=== PATIENT | male | born 1990 | race Hispanic/Latino ===

== ENCOUNTER 2017-09-05 10:11 | Emergency (ER) | payer BC ==
[2017-09-05 10:33] VITALS: BMI 22.8
[2017-09-05 11:28] LABS: BASO # 0.03 K/mm3 (0.0-2.0); BASO % 0.3 % (0.0-3.0); EOS # 0.2 (0.0-0.7); EOS % 2.5 % (1.5-5.0); GRAN # 5.68 (1.4-6.5); GRAN % 64.8 % (50.0-68.0); HEMOGLOBIN 14.5 g/dL (14.0-18.0); LYMPH # 2.4 (1.2-3.4); MEAN CELL VOLUME 88.6 fl (80.0-105.0); MEAN CORPUSCULAR HEMOGLOBIN 31.8 pg (25.0-35.0); MEAN CORPUSCULAR HGB CONC 35.9 g/dl (31.0-37.0); MONO # 0.5 (0.1-0.6); MONO % 5.4 % (1.0-6.0); RBC 4.56 10^6/uL (3.5-6.1); RED CELL DISTRIBUTION WIDTH 12.2 % (11.5-14.5); WHITE BLOOD COUNT 8.8 10^3/ul (4.5-11.0)
[2017-09-05 11:29] LABS: PH,URINE 7.5 (4.7-8.0); URINE BILIRUBIN NEGATIVE (NEGATIVE); URINE BLOOD NEGATIVE (NEGATIVE); URINE GLUCOSE (UA) NEGATIVE (NEGATIVE); URINE LEUKOCYTE ESTERASE NEGATIVE Leu/uL (NEGATIVE); URINE PROTEIN NEGATIVE mg/dL (<30 mg/dL); URINE UROBILINOGEN 0.2 E.U./dL (<1 E.U./dL)
[2017-09-05 11:35] LABS: URINE APPEARANCE CLEAR (CLEAR); URINE COLOR YELLOW (YELLOW)
[2017-09-05 11:37] LABS: ALB/GLOB RATIO 1.7 (1.1-1.8); ALBUMIN 4.4 g/dL (3.0-4.8); ALT/SGPT 48 U/L (7-56); AST/SGOT 30 U/L (17-59); BLOOD UREA NITROGEN 14 mg/dL (7-21); CALCIUM 9.1 mg/dL (8.4-10.5); GFR AFRICAN-AMERICAN > 60; GFR NON-AFRICAN AMERICAN > 60
[2017-09-05 11:42] LABS: INR 1.05 (0.93-1.08); PARTIAL THROMBOPLASTIN TIME 30.6 Seconds (25.1-36.5); PROTHROMBIN TIME 12.1 SECONDS (9.4-12.5)
[2017-09-05 12:10] LABS: BARBITURATES, UR NEGATIVE (NEGATIVE); BENZODIAZEPINES, UR NEGATIVE (NEGATIVE); OPIATES, UR NEGATIVE (NEGATIVE); PHENCYCLIDINE, UR NEGATIVE (NEGATIVE)
--- NOTE | 2017-09-05 12:33 | ED PDOC ---
Arrival/HPI - General Chief Complaint: Headache Time Seen by Provider: 09/05/17 11:25 Historian: Patient - History of Present Illness Narrative History of Present Illness (Text): 09/05/17 12:28 Larry Cesar is a 26 year old male who presents to the emergency department complaining of pain behind right eye today. Patient noticed this morning that his eyelids looked "droopy" probably due to the 2mg Ativan he took today. Patient, also, endorses that he has been using methamphetamine everyday, multiple times a day for the past 4 years, last injection was 09:00 this morning. Patient notes that he told triage that he was hallucinating but rescinds symptom because his hallucinations may just have been his dreams. Patient denies any fever, chills, chest pain, shortness of breath, nausea, vomiting, diarrhea, urinary symptoms, back pain, neck pain, headache, dizziness , trauma/injury, suicidal/homicidal ideation or any other complaints. Time/Duration: 4-6 hours Symptom Onset: Gradual Symptom Course: Unchanged Activities at Onset: Light Context: Home Past Medical History - Provider Review Nursing Documentation Reviewed: Yes - Infectious Disease Hx of Infectious Diseases: None - Psychiatric Hx Substance Use: Yes - Surgical History Hx Tonsillectomy: Yes - Anesthesia Hx Anesthesia: Yes Hx Anesthesia Reactions: No Hx Malignant Hyperthermia: No Family/Social History - Physician Review Nursing Documentation Reviewed: Yes Family/Social History: No Known Family HX Smoking Status: Former Smoker Hx Alcohol Use: No Hx Substance Use: Yes Substance used: meth - last used 09/05/2017 Allergies/Home Meds Allergies/Adverse Reactions: Allergies No Known Allergies Allergy (Verified 09/05/17 10:33) Home Medications: Home Meds Medication Instructions Recorded Confirmed LORazepam [Ativan] 1 tab PO DAILY 09/05/17 09/05/17 Review of Systems - Physician Review All systems were reviewed & negative as marked: Yes - Review of Systems Constitutional: absent: Fevers, Night Sweats Eyes: Eye Pain (behind right eye) ENT: absent: Hearing Changes Respiratory: absent: SOB, Cough Cardiovascular: absent: Chest Pain, Palpitations Gastrointestinal: absent: Abdominal Pain, Stool Changes Genitourinary Male: absent: Dysuria, Frequency Musculoskeletal: absent: Arthralgias Skin: absent: Rash, Pruritis Neurological: absent: Headache, Dizziness Endocrine: absent: Diaphoresis Hemo/Lymphatic: absent: Adenopathy Psychiatric: absent: Anxiety, Depression Physical Exam Vital Signs Reviewed: Yes Vital Signs Temp Pulse Resp BP Pulse Ox 09/05/17 14:20 97.8 F 99 H 17 126/70 99 09/05/17 13:50 97.8 F 99 H 17 126/70 99 09/05/17 13:00 99 H 18 122/74 98 09/05/17 10:35 97.9 F 122 H 18 121/83 97 Temperature: Afebrile Blood Pressure: Normal Pulse: Tachycardic Respiratory Rate: Normal Appearance: Positive for: Well-Appearing, Non-Toxic, Comfortable Pain Distress: None Mental Status: Positive for: Alert and Oriented X 3 - Systems Exam Head: Present: Atraumatic, Normocephalic, Other (Puffiness to eyes) Pupils: Present: PERRL Extroacular Muscles: Present: EOMI Conjunctiva: Present: Normal Mouth: Present: Moist Mucous Membranes Neck: Present: Normal Range of Motion Respiratory/Chest: Present: Clear to Auscultation, Good Air Exchange. No: Respiratory Distress, Accessory Muscle Use Cardiovascular: Present: Regular Rate and Rhythm, Normal S1, S2. No: Murmurs Abdomen: No: Tenderness, Distention, Peritoneal Signs Back: Present: Normal Inspection Upper Extremity: Present: Other (Track hernandez bilaterally) Lower Extremity: Present: Other (Track hernandez bilaterally) Neurological: Present: GCS=15, CN II-XII Intact, Speech Normal Skin: Present: Warm, Dry, Normal Color. No: Rashes Psychiatric: Present: Alert, Oriented x 3, Normal Insight, Normal Concentration Medical Decision Making ED Course and Treatment: 09/05/17 12:36 Impression: 26 year old male complaining of pain behind right eye this morning. Plan: -- Head CT w/o contrast -- Reassess and disposition Progress Notes: 09/05/17 12:[address] without contrast: Creator : Ruperto Gonzalez MD FINDINGS: HEMORRHAGE:No intracranial hemorrhage. BRAIN:No mass effect or edema. No atrophy or chronic microvascular ischemic changes. VENTRICLES:Unremarkable. No hydrocephalus. CALVARIUM:Unremarkable. PARANASAL SINUSES:Unremarkable as visualized. No significant inflammatory changes. MASTOID AIR CELLS:Unremarkable as visualized. No inflammatory changes. OTHER FINDINGS:None. IMPRESSION: No acute findings - Lab Interpretations Lab Results: 09/05/17 11:05 09/05/17 11:05 Lab Results 09/05/17 11:30: Alcohol, Quantitative < 10 09/05/17 11:30: Urine Opiates Screen Negative, Urine Methadone Screen Negative, Ur Barbiturates Screen Negative, Ur Phencyclidine Scrn Negative, Ur Amphetamines Screen Positive H, U Benzodiazepines Scrn Negative, U Oth Cocaine Metabols Negative, U Cannabinoids Screen Negative 09/05/17 11:05: Urine Color Yellow, Urine Appearance Clear, Urine pH 7.5, Ur Specific Simms 1.010, Urine Protein Negative, Urine Glucose (UA) Negative, Urine Ketones Negative, Urine Blood Negative, Urine Nitrate Negative, Urine Bilirubin Negative, Urine Urobilinogen 0.2, Ur Leukocyte Esterase Negative 09/05/17 11:05: Sodium 137, Potassium 4.2, Chloride 100, Carbon Dioxide 26, Anion Gap 16, BUN 14, Creatinine 0.6 L, Est GFR ( Amer) > 60, Est GFR ( Non-Af Amer) > 60, Random Glucose 96, Calcium 9.1, Total Bilirubin 1.1, AST 30, ALT 48, Alkaline Phosphatase 60, Total Protein 7.1, Albumin 4.4, Globulin 2.7, Albumin/Globulin Ratio 1.7 09/05/17 11:05: PT 12.1, INR 1.05, APTT 30.6 09/05/17 11:05: WBC 8.8, RBC 4.56, Hgb 14.5, Hct 40.4 L, MCV 88.6, MCH 31.8, MCHC 35.9, RDW 12.2, Plt Count 254, MPV 9.0, Gran % 64.8, Lymph % (Auto) 27.0, [place] % (Auto) 5.4, Eos % (Auto) 2.5, Baso % (Auto) 0.3, Gran # 5.68, Lymph # ( Auto) 2.4, [place] # (Auto) 0.5, Eos # (Auto) 0.2, Baso # (Auto) 0.03 I have reviewed the lab results: Yes - RAD Interpretation Radiology Orders: 09/05/17 11:32 HEAD W/O CONTRAST [CT] Stat - Scribe Statement The provider has reviewed the documentation as recorded by the Eileenibpepe Corral Provider Scribe Attestation: All medical record entries made by the Scribe were at my direction and personally dictated by me. I have reviewed the chart and agree that the record accurately reflects my personal performance of the history, physical exam, medical decision making, and the department course for this patient. I have also personally directed, reviewed, and agree with the discharge instructions and disposition. Disposition/Present on Arrival - Present on Arrival Any Indicators Present on Arrival: No History of DVT/PE: No History of Uncontrolled Diabetes: No Urinary Catheter: No History of Decub. Ulcer: No History Surgical Site Infection Following: None - Disposition Have Diagnosis and Disposition been Completed?: Yes Diagnosis: Methamphetamine abuse, Benzodiazepine abuse, Polypharmacy Disposition: HOME/ ROUTINE Disposition Time: 13:41 Patient Plan: Discharge Condition: GOOD Discharge Instructions (ExitCare): Drug Abuse and Drug Addiction (DC), Drug Abuse Treatment Additional Instructions: Larry - All of your test results are normal and your Head CT does not show anything specifically wrong. Please take better care of your self and cut back a little or stop the crystal meth. Hunter- Dr. Lowell Aparicio Referrals: Mantara Leonor Req, [Primary Care Provider] - Follow up with primary Forms: [facility] (Greenlandic)
--- NOTE | 2017-09-05 12:43 | CT ---
PROCEDURE: CT HEAD WITHOUT CONTRAST. HISTORY: Headache COMPARISON: None available. TECHNIQUE: Axial computed tomography images were obtained through the head/brain without intravenous contrast. Radiation dose: Total exam DLP = 999 mGy-cm. This CT exam was performed using one or more of the following dose reduction techniques: Automated exposure control, adjustment of the mA and/or kV according to patient size, and/or use of iterative reconstruction technique. FINDINGS: HEMORRHAGE: No intracranial hemorrhage. BRAIN: No mass effect or edema. No atrophy or chronic microvascular ischemic changes. VENTRICLES: Unremarkable. No hydrocephalus. CALVARIUM: Unremarkable. PARANASAL SINUSES: Unremarkable as visualized. No significant inflammatory changes. MASTOID AIR CELLS: Unremarkable as visualized. No inflammatory changes. OTHER FINDINGS: None. IMPRESSION: No acute findings
[2017-09-05 13:36] VITALS: PULSE 99
[2017-09-05 14:21] VITALS: BP 126/70; RESP 17; TEMP 97.8; O2SAT 99
== END 2017-09-05 13:50 | disposition home or self-care (01) ==
LOC: ED 10:11
DX: F13.10 Sedative, hypnotic or anxiolytic abuse, uncomplicated (principal); F15.10 Other stimulant abuse, uncomplicated; Z87.891 Personal history of nicotine dependence
CPT/HCPCS: 70450; 80053; 81003; 85025; 85610; 85730; 99285; G0480

== ENCOUNTER 2017-10-14 23:15 | Emergency (ER) | payer BC ==
[2017-10-15 00:03] VITALS: BMI 21.6
[2017-10-15 00:05] VITALS: RESP 18; TEMP 98.5
--- NOTE | 2017-10-15 00:38 | ED PDOC ---
Arrival/HPI - General Chief Complaint: Medical Clearance Time Seen by Provider: 10/15/17 00:12 Historian: Patient - History of Present Illness Narrative History of Present Illness (Text): 10/15/17 00:30 26yo male with pmhx of substance abuse present to ED for evaluation after injecting himself with Meth. States he thinks he injected air while injecting himself with Meth. He however denies swelling to the injection site, SOB, chest pain, nausea, vomiting, dizziness, diaphoresis, any other complaint. Past Medical History - Provider Review Nursing Documentation Reviewed: Yes - Infectious Disease Hx of Infectious Diseases: None - Psychiatric Hx Substance Use: Yes - Surgical History Hx Tonsillectomy: Yes - Anesthesia Hx Anesthesia: Yes Hx Anesthesia Reactions: No Hx Malignant Hyperthermia: No Family/Social History - Physician Review Nursing Documentation Reviewed: Yes Family/Social History: Unknown Family HX Smoking Status: Former Smoker Hx Alcohol Use: No Hx Substance Use: Yes Substance used: meth - last used 09/05/2017 Allergies/Home Meds Allergies/Adverse Reactions: Allergies No Known Allergies Allergy (Verified 10/15/17 00:03) Home Medications: Home Meds Medication Instructions Recorded Confirmed No Known Home Med 10/15/17 10/15/17 Review of Systems - Physician Review All systems were reviewed & negative as marked: Yes - Review of Systems Constitutional: Normal, Other (Evaluation s/p injecting meth) Eyes: Normal ENT: Normal Respiratory: Normal Cardiovascular: Normal Gastrointestinal: Normal Genitourinary Male: Normal Musculoskeletal: Normal Skin: Normal Neurological: Normal Endocrine: Normal Hemo/Lymphatic: Normal Psychiatric: Normal Physical Exam Vital Signs Reviewed: Yes Vital Signs Temp Pulse Resp BP Pulse Ox 10/15/17 00:58 85 18 128/72 100 10/15/17 00:04 98.5 F 88 18 131/78 96 Temperature: Afebrile Blood Pressure: Normal Pulse: Regular Respiratory Rate: Normal Appearance: Positive for: Well-Appearing, Non-Toxic, Comfortable Pain Distress: None Mental Status: Positive for: Alert and Oriented X 3 - Systems Exam Head: Present: Atraumatic, Normocephalic Pupils: Present: PERRL Extroacular Muscles: Present: EOMI Conjunctiva: Present: Normal Mouth: Present: Moist Mucous Membranes Neck: Present: Normal Range of Motion Respiratory/Chest: Present: Clear to Auscultation, Good Air Exchange. No: Respiratory Distress, Accessory Muscle Use Cardiovascular: Present: Regular Rate and Rhythm, Normal S1, S2. No: Murmurs Abdomen: No: Tenderness, Distention, Peritoneal Signs Back: Present: Normal Inspection Upper Extremity: Present: Normal Inspection. No: Cyanosis, Edema Lower Extremity: Present: Normal Inspection. No: Edema Neurological: Present: GCS=15, CN II-XII Intact, Speech Normal Skin: Present: Warm, Dry, Normal Color, Other (Mutiple superficial abrasions noted on b/l hand/arm). No: Rashes Psychiatric: Present: Alert, Oriented x 3, Normal Insight, Normal Concentration Medical Decision Making ED Course and Treatment: 10/15/17 03:12 PT in ED for stated history. He was not in any distress in ED. He denied any any somatic complaint in ED. his lung was CTA b/l and he was talking in full sentence and ambulatory in ED . He was DC home and counselled on drug cessation. Disposition/Present on Arrival - Present on Arrival Any Indicators Present on Arrival: No History of DVT/PE: No History of Uncontrolled Diabetes: No Urinary Catheter: No History of Decub. Ulcer: No History Surgical Site Infection Following: None - Disposition Have Diagnosis and Disposition been Completed?: Yes Diagnosis: Substance abuse Disposition: HOME/ ROUTINE Disposition Time: 00:40 Patient Plan: Discharge Condition: STABLE Discharge Instructions (ExitCare): Drug Abuse and Drug Addiction (DC), Drug Abuse Treatment Additional Instructions: Follow up with your doctor Return to ED for new symptoms Referrals: [facility] [place] [Outside] - Follow up with primary Forms: [employer] (Indonesian)
[2017-10-15 02:35] VITALS: BP 128/72; PULSE 85; O2SAT 100
== END 2017-10-15 00:58 | disposition home or self-care (01) ==
LOC: ED 23:15
DX: F19.10 Other psychoactive substance abuse, uncomplicated (principal)

== ENCOUNTER 2017-12-28 19:46 | Emergency (ER) | payer BC ==
[2017-12-28 19:47] VITALS: BMI 21.6
[2017-12-28 20:08] VITALS: PULSE 98
[2017-12-28 20:54] LABS: BASO # 0.04 K/mm3 (0.0-2.0); BASO % 0.5 % (0.0-3.0); EOS # 0.2 (0.0-0.7); EOS % 2.1 % (1.5-5.0); GRAN # 3.95 (1.4-6.5); GRAN % 54.2 % (50.0-68.0); HEMOGLOBIN 13.6 g/dL (14.0-18.0); LYMPH # 2.4 (1.2-3.4); LYMPH % 32.2 % (22.0-35.0); MEAN CELL VOLUME 88.8 fl (80.0-105.0); MEAN CORPUSCULAR HEMOGLOBIN 31.2 pg (25.0-35.0); MEAN CORPUSCULAR HGB CONC 35.1 g/dl (31.0-37.0); MEAN PLATELET VOLUME 9.4 fl (7.0-11.0); MONO # 0.8 (0.1-0.6); RBC 4.36 10^6/uL (3.5-6.1); RED CELL DISTRIBUTION WIDTH 13.5 % (11.5-14.5); WHITE BLOOD COUNT 7.3 10^3/ul (4.5-11.0)
--- NOTE | 2017-12-28 20:56 | ED PDOC ---
Arrival/HPI - General Chief Complaint: Abnormal Skin Integrity Time Seen by Provider: 12/28/17 20:11 Historian: Patient - History of Present Illness Narrative History of Present Illness (Text): 12/28/17 20:47 Patient is a 27 year old male with PMH of Hepatitis C (treated) and drug abuse presenting to the ED with right arm cellulitis. Patient admits to be injecting methamphetamines daily. He states that the cellulitis developed 2 weeks ago and has been getting worse. Patient was recently treated on clindamycin for another cellulitis on his hand but was not compliant. Patient denies fevers, chills, headaches, chest pain, shortness of breath, or abdominal pain. Time/Duration: < month Symptom Onset: Gradual Symptom Course: Unchanged Quality: Aching Severity Level: 3 Past Medical History - Provider Review Nursing Documentation Reviewed: Yes - Travel History Have you recently traveled outside [place] w/in the past 3 mons?: No - Infectious Disease Hx of Infectious Diseases: None - Psychiatric Hx Anxiety: Yes Hx Depression: Yes Hx Substance Use: Yes (Meth) - Surgical History Hx Tonsillectomy: Yes - Anesthesia Hx Anesthesia: Yes Hx Anesthesia Reactions: No Hx Malignant Hyperthermia: No Family/Social History - Physician Review Nursing Documentation Reviewed: Yes Family/Social History: No Known Family HX Smoking Status: Former Smoker Hx Alcohol Use: No Hx Substance Use: Yes (Meth) Substance used: meth - last used 09/05/2017 Allergies/Home Meds Allergies/Adverse Reactions: Allergies No Known Allergies Allergy (Verified 12/28/17 20:09) Review of Systems - Review of Systems Constitutional: Normal. absent: Fevers, Night Sweats Eyes: Normal ENT: Normal Respiratory: Normal. absent: SOB, Cough, Wheezing Cardiovascular: Normal. absent: Chest Pain Gastrointestinal: Normal. absent: Abdominal Pain, Stool Changes, Constipation, Diarrhea, Nausea, Vomiting Genitourinary Male: Normal Musculoskeletal: Normal. absent: Arthralgias Skin: Cellulitis (Cellulitis on right arm) Psychiatric: Normal. absent: Anxiety, Depression Physical Exam Vital Signs Reviewed: Yes Vital Signs Temp Pulse Resp BP Pulse Ox 12/28/17 20:59 98 F 98 H 19 124/52 L 98 12/28/17 20:05 98.2 F 98 H 18 123/72 100 Temperature: Afebrile Blood Pressure: Normal Pulse: Regular Respiratory Rate: Normal Appearance: Positive for: Well-Appearing Pain Distress: None Mental Status: Positive for: Alert and Oriented X 3 - Systems Exam Head: Present: Atraumatic, Normocephalic Pupils: Present: PERRL Extroacular Muscles: Present: EOMI Conjunctiva: Present: Normal Mouth: Present: Moist Mucous Membranes Respiratory/Chest: Present: Clear to Auscultation, Good Air Exchange. No: Respiratory Distress, Accessory Muscle Use, Wheezes, Rales, Rhonchi Cardiovascular: Present: Regular Rate and Rhythm, Normal S1, S2. No: Murmurs, Rub, Gallop Abdomen: Present: Normal Bowel Sounds. No: Tenderness, Distention, Peritoneal Signs Upper Extremity: Present: Tenderness, Swelling (Erthema and swelling noted on right arm inferior elbow), Erythema, Capillary Refill < 2s, Norm 2-Pt Discrimination, Other (Multiple track hernandez noted on both upper extremities). No: Normal Inspection, Cyanosis Lower Extremity: Present: Normal Inspection. No: Edema Neurological: Present: GCS=15, CN II-XII Intact, Speech Normal Skin: Present: Warm, Dry. No: Rashes Psychiatric: Present: Alert, Oriented x 3, Normal Insight, Normal Concentration Medical Decision Making ED Course and Treatment: 12/28/17 20:59 Impression: Patient is a 27 year old male presenting to the ED with right upper extremity cellulitis Differential Diagnosis included but are not limited to: - Cellulitis - Abscess Plan: -- CBC -- CMP -- Keflex -- Bactrim Progress Notes: 12/28/17 21:00 - WBC: WNL, CMP: hemolyzed sample, patient refused another blood draw. - Patient examined, patient failed outpatient antibiotics treatment. Patient was advised to get IV antibiotics treatment in the hospital but patient refused to be admitted. Patient instructed to return to the ED for worsening or newly concerning symptoms. Patient will be discharged on keflex and bactrim. Patient is stable for discharge. Reassessment Condition: Re-examined, Unchanged - Lab Interpretations Lab Results: 12/28/17 20:45 Lab Results 12/28/17 20:45: WBC 7.3, RBC 4.36, Hgb 13.6 L, Hct 38.7 L, MCV 88.8, MCH 31.2, MCHC 35.1, RDW 13.5, Plt Count 276, MPV 9.4, Gran % 54.2, Lymph % (Auto) 32.2, [place] % (Auto) 11.0 H, Eos % (Auto) 2.1, Baso % (Auto) 0.5, Gran # 3.95, Lymph # (Auto) 2.4, [place] # (Auto) 0.8 H, Eos # (Auto) 0.2, Baso # (Auto) 0.04 Disposition/Present on Arrival - Present on Arrival Any Indicators Present on Arrival: No History of DVT/PE: No History of Uncontrolled Diabetes: No Urinary Catheter: No History of Decub. Ulcer: No History Surgical Site Infection Following: None - Disposition Have Diagnosis and Disposition been Completed?: Yes Diagnosis: Cellulitis Disposition: HOME/ ROUTINE Disposition Time: 21:23 Patient Plan: Discharge Patient Problems: Current Active Problems Problem Status Onset Cellulitis Acute Condition: STABLE Discharge Instructions (ExitCare): Cellulitis (ED) Additional Instructions: STEVEN WOODRUFF, thank you for letting us take care of you today. Your provider was and you were treated for cellulitis. The emergency medical care you received today was directed at your acute symptoms. If you were prescribed any medication, please fill it and take as directed. It may take several days for your symptoms to resolve. Return to the Emergency Department if your symptoms worsen, do not improve, or if you have any other problems. Please contact your doctor or call one of the physicians/clinics you have been referred to that are listed on the Patient Visit Information form that is included in your discharge packet. Bring any paperwork you were given at discharge with you along with any medications you are taking to your follow up visit. Our treatment cannot replace ongoing medical care by a primary care provider outside of the emergency department. Thank you for allowing the [facility] team to be part of your care today. If you had an X-Ray or CT scan: A Radiologist will review the ED reading if any change in treatment is needed we will contact you. If you had a blood, urine, or wound culture: It will take several days for the results, if any change in treatment is needed we will contact you. If you had an STI test: It will take 48 hours for the results. Please call after 1 week if you have not heard back. Prescriptions: Cephalexin [Keflex] 500 mg PO QID #40 capsule Sulfamethoxazole/Trimethoprim [Bactrim DS 800 mg-160 mg] 1 tab PO BID #20 tab Referrals: Jessica Wang MD [Medical Doctor] - Follow up with primary Forms: [employer] (Faroese)
[2017-12-28 21:02] VITALS: BP 124/52; RESP 19; TEMP 98; O2SAT 98
== END 2017-12-28 22:36 | disposition home or self-care (01) ==
LOC: ED 19:46
DX: L03.113 Cellulitis of right upper limb (principal); Z87.891 Personal history of nicotine dependence

== ENCOUNTER 2018-01-21 17:44 | Inpatient (IN) | payer BC ==
[2018-01-21 18:06] VITALS: BMI 21.2
--- NOTE | 2018-01-21 18:06 | ED PDOC ---
Arrival/HPI - General Time Seen by Provider: 01/21/18 18:06 Historian: EMS EM Caveat: Altered Mental Status - History of Present Illness Narrative History of Present Illness (Text): 01/21/18 17:56 Patient is a 27 year old male with a history of substance abuse, who was brought to the Emergency department by EMS for acute agitation secondary to substance abuse. Per EMS, patient admitted to taking "speed" and heroin. He subsequently called EMS because he was experiencing palpitations. EMS found him to be tachycardic at 144bpm. Haldol 10mg IM was administered due to patient showing acute and severe agitation. HPI and ROS is limited due to patient's AMS secondary substance abuse. Past Medical History - Provider Review Nursing Documentation Reviewed: Yes - Infectious Disease Hx of Infectious Diseases: None - Psychiatric Hx Anxiety: Yes Hx Depression: Yes Hx Substance Use: Yes (Meth) - Surgical History Hx Tonsillectomy: Yes - Anesthesia Hx Anesthesia: Yes Hx Anesthesia Reactions: No Hx Malignant Hyperthermia: No Family/Social History - Physician Review Nursing Documentation Reviewed: Yes Family/Social History: No Known Family HX Smoking Status: Former Smoker Hx Alcohol Use: No Hx Substance Use: Yes (Meth) Substance used: meth - last used 09/05/2017 Allergies/Home Meds Allergies/Adverse Reactions: Allergies No Known Allergies Allergy (Verified 01/21/18 18:43) Home Medications: Home Meds Medication Instructions Recorded Confirmed Unobtainable 01/21/18 01/21/18 Review of Systems - Review of Systems Systems not reviewed;Unavailable: Altered Mental Status Physical Exam Vital Signs Reviewed: Yes Temperature: Afebrile Blood Pressure: Normal Pulse: Tachycardic Respiratory Rate: Normal - Systems Exam Head: Present: Atraumatic Pupils: Present: Other (Dilated, equal, and minimally responsive to light) Extroacular Muscles: Present: EOMI Conjunctiva: Present: Normal Mouth: Present: Dry Neck: Present: Normal Range of Motion Respiratory/Chest: Present: Clear to Auscultation, Tachypneic. No: Respiratory Distress, Accessory Muscle Use Cardiovascular: Present: Normal S1, S2, Tachycardic. No: Murmurs Abdomen: No: Tenderness, Distention, Peritoneal Signs Back: Present: Normal Inspection Upper Extremity: Present: Normal Inspection. No: Cyanosis, Edema Lower Extremity: Present: Normal Inspection. No: Edema Neurological: Present: GCS=15, CN II-XII Intact, Speech Normal Skin: Present: Normal Color, Diaphoretic. No: Rashes Psychiatric: Present: Alert Medical Decision Making ED Course and Treatment: 01/21/18 18:06 Impression: Patient is a 27 year old male who was brought by EMS for altered mental status secondary to substance abuse. Differential Diagnosis included but are not limited to: Plan: -- Head CT without Contrast -- EKG -- Labs -- Blood work -- Haldol -- Ativan -- IV fluids -- Urinalysis -- O2 via nasal cannula -- Reassess and disposition Prior Visits: Notes and results from previous visits were reviewed. Progress Notes: 01/21/18 18:12 Discussed with poison control who recommends IV fluids and Benzo's for sedation. Repeat EKG in 4 hours. Rule out coingestion. 01/21/18 20:[address] zapata, patient to be admitted to the icu. it was agreed to start empiric abx in light of leukocytosis. no clear source of infection at this time, cultures ordered and abx to be started. - Critical Care Critical Care Minutes: Other (35 minutes) - Lab Interpretations I have reviewed the lab results: Yes - RAD Interpretation Narrative RAD Interpretations (Text): 01/21/18 19:15 Chest X-ray: Dictator : Luis Acosta MD FINDINGS: LUNGS: No active pulmonary disease. PLEURA: No significant pleural effusion identified, no pneumothorax apparent. CARDIOVASCULAR: Normal. OSSEOUS STRUCTURES: No significant abnormalities. VISUALIZED UPPER ABDOMEN: Normal. OTHER FINDINGS: None. IMPRESSION: No active disease. 01/21/18 21:[address] without Contrast: Dictator: Dr.Michael Adamson IMPRESSION: Sinusitis. No evidence of acute intracranial pathology. Broker Assistant: Radiologist - EKG Interpretation EKG Interpretation (Text): 01/21/18 19:23 1811: sinus tach at 153 bpm, nml qrs, nml axis, no acute sttw abn Interpreted by ED Physician: Yes Type: 12 lead EKG - Scribe Statement The provider has reviewed the documentation as recorded by the Scribe Saroj Shaw Provider Scribe Attestation: All medical record entries made by the Scribe were at my direction and personally dictated by me. I have reviewed the chart and agree that the record accurately reflects my personal performance of the history, physical exam, medical decision making, and the department course for this patient. I have also personally directed, reviewed, and agree with the discharge instructions and disposition. Disposition/Present on Arrival - Present on Arrival Any Indicators Present on Arrival: No History of DVT/PE: No History of Uncontrolled Diabetes: No Urinary Catheter: No History Surgical Site Infection Following: None - Disposition Have Diagnosis and Disposition been Completed?: Yes Diagnosis: Drug overdose Disposition: HOSPITALIZED Disposition Time: 18:30 Patient Problems: Current Active Problems Problem Status Onset Drug overdose Acute Condition: GUARDED
[2018-01-21] MEDS ORDERED: Sodium Chloride 0.9% 1,000 ML IV STA ×4 (18:08→21:02)
[2018-01-21 18:29] LABS: BASO # 0.06 K/mm3 (0.0-2.0); BASO % 0.3 % (0.0-3.0); EOS # 1.4 (0.0-0.7); EOS % 7.2 % (1.5-5.0); GRAN # 5.19 (1.4-6.5); GRAN % 26.7 % (50.0-68.0); HEMOGLOBIN 15.7 g/dL (14.0-18.0); LYMPH # 11.4 (1.2-3.4); LYMPH % 58.3 % (22.0-35.0); MEAN CELL VOLUME 91.3 fl (80.0-105.0); MEAN CORPUSCULAR HGB CONC 33.9 g/dl (31.0-37.0); MONO # 1.5 (0.1-0.6); MONO % 7.5 % (1.0-6.0); RBC 5.07 10^6/uL (3.5-6.1); RED CELL DISTRIBUTION WIDTH 13.4 % (11.5-14.5); WHITE BLOOD COUNT 19.5 10^3/ul (4.5-11.0)
[2018-01-21 18:40] LABS: ALB/GLOB RATIO 1.5 (1.1-1.8); ALBUMIN 4.8 g/dL (3.0-4.8); ALT/SGPT 38 U/L (7-56); AST/SGOT 39 U/L (17-59); BLOOD UREA NITROGEN 14 mg/dL (7-21); CALCIUM 10.2 mg/dL (8.4-10.5); GFR NON-AFRICAN AMERICAN > 60
[2018-01-21 18:59] LABS: PH,URINE 6.5 (4.7-8.0); URINE BILIRUBIN SMALL (NEGATIVE); URINE BLOOD NEGATIVE (NEGATIVE); URINE GLUCOSE (UA) NEGATIVE (NEGATIVE); URINE LEUKOCYTE ESTERASE NEGATIVE Leu/uL (NEGATIVE); URINE PROTEIN 30 mg/dL (<30 mg/dL)
--- NOTE | 2018-01-21 19:03 | RAD ---
Date of service: 01/21/2018 HISTORY: aspiration COMPARISON: No prior. FINDINGS: LUNGS: No active pulmonary disease. PLEURA: No significant pleural effusion identified, no pneumothorax apparent. CARDIOVASCULAR: Normal. OSSEOUS STRUCTURES: No significant abnormalities. VISUALIZED UPPER ABDOMEN: Normal. OTHER FINDINGS: None. IMPRESSION: No active disease.
[2018-01-21 19:09] LABS: URINE APPEARANCE CLEAR (CLEAR); URINE COLOR YELLOW (YELLOW)
[2018-01-21 19:11] LABS: ACETAMINOPHEN < 10.0 ug/ml (10.0-20.0); SALICYLATE 10 mg/dL (2.0-20.0)
[2018-01-21 19:16] LABS: BENZODIAZEPINES, UR NEGATIVE (NEGATIVE)
[2018-01-21 19:22] LABS: URINE AMORPHOUS SEDIMENT MODERATE; URINE BACTERIA FEW (NEG); URINE RBC NEGATIVE /hpf (0-2)
[2018-01-21 19:24] LABS: BARBITURATES, UR NEGATIVE (NEGATIVE); OPIATES, UR NEGATIVE (NEGATIVE); PHENCYCLIDINE, UR NEGATIVE (NEGATIVE)
[2018-01-21] MEDS ORDERED: Piperacillin/Tazobact 3.375 gm 100 ML IVPB STA (20:30)
[2018-01-21] MEDS ORDERED: Vancomycin 500 mg Inj IVPB STA (20:31)
[2018-01-21] MEDS ORDERED: Vancomycin 1gm in NS 250ml 1 GM/250 ML BAG IVPB STA (20:37)
--- NOTE | 2018-01-21 20:59 | CP.PCM.HP ---
<Elio Hickman - Last Filed: 01/21/18 22:21> History of Present Illness - History of Present Illness History of Present Illness: 27 year old male with a past medical history of methamphetamine/polysubstance abuse and cellulitis who was brought in by EMS for palpitations and chest discomfort in the setting of methamphetamine use. In the ED patient was noted to be agitated and given a 20 mg IM of Haldol and 2 mg of Ativan. Poison control was contacted and recommended treatment with benzodiazepines and repeat EKG in 4 hours. ICU was consulted for the patient being persistently hypotensive despite being given 3 fluids of IV fluids. Otherwise, 12 point ROS was limited secondary to patient being sedated. PMH: Polysubstance abuse PSH: tonsillectomy Allergies; NKA Social: Unobtainable; history of methamphetamine use Present on Admission - Present on Admission Any Indicators Present on Admission: No Review of Systems - Review of Systems All systems: reviewed and no additional remarkable complaints except (as per HPI) Past Patient History - Infectious Disease Hx of Infectious Diseases: None - Past Social History Smoking Status: Former Smoker - PSYCHIATRIC Hx Anxiety: Yes Hx Depression: Yes Hx Substance Use: Yes (Meth) - SURGICAL HISTORY Hx Tonsillectomy: Yes - ANESTHESIA Hx Anesthesia: Yes Hx Anesthesia Reactions: No Hx Malignant Hyperthermia: No Meds Allergies/Adverse Reactions: Allergies Allergy/AdvReac Type Severity Reaction Status Date / Time No Known Allergies Allergy Verified 01/21/18 18:43 Physical Exam - Constitutional Appears: Unkempt, Other (sedated) - Head Exam Head Exam: ATRAUMATIC, NORMOCEPHALIC - Neck Exam Neck exam: Positive for: Normal Inspection - Respiratory Exam Respiratory Exam: Clear to Auscultation Bilateral, NORMAL BREATHING PATTERN. absent: Accessory Muscle Use - Cardiovascular Exam Cardiovascular Exam: RRR, +S1, +S2 - GI/Abdominal Exam GI & Abdominal Exam: Normal Bowel Sounds, Soft - Extremities Exam Extremities exam: Positive for: normal inspection. Negative for: calf tenderness - Back Exam Back exam: NORMAL INSPECTION. absent: CVA tenderness (L), CVA tenderness (R) - Neurological Exam Additional comments: grimaces to sternal rub - Skin Skin Exam: Dry, Intact, Normal Color Results - Vital Signs Recent Vital Signs: Last Vital Signs Temp 98.7 F 01/21/18 19:39 Pulse 120 H 01/21/18 19:39 Resp 18 01/21/18 19:39 BP 80/43 L 01/21/18 19:39 Pulse Ox 98 01/21/18 19:39 - Labs Result Diagrams: 01/21/18 18:22 01/21/18 18:22 Labs: Laboratory Results - last 24 hr 01/21/18 01/21/18 01/21/18 18:22 18:22 18:22 WBC 19.5 H D RBC 5.07 Hgb 15.7 D Hct 46.3 MCV 91.3 MCH 31.0 MCHC 33.9 RDW 13.4 Plt Count 288 MPV 10.0 Gran % 26.7 L Lymph % (Auto) 58.3 H [place] % (Auto) 7.5 H Eos % (Auto) 7.2 H Baso % (Auto) 0.3 Gran # 5.19 Lymph # (Auto) 11.4 H [place] # (Auto) 1.5 H Eos # (Auto) 1.4 H Baso # (Auto) 0.06 Sodium 144 Potassium 5.2 H Chloride 103 Carbon Dioxide 18 L Anion Gap 28 H BUN 14 Creatinine 1.0 Est GFR ( Amer) > 60 Est GFR (Non-Af Amer) > 60 Random Glucose 139 H Calcium 10.2 Magnesium 2.3 H Total Bilirubin 1.1 AST 39 ALT 38 Alkaline Phosphatase 95 Total Creatine Kinase 165 Total Protein 8.0 Albumin 4.8 Globulin 3.2 Albumin/Globulin Ratio 1.5 Urine Color Urine Appearance Urine pH Ur Specific [place] Urine Protein Urine Glucose (UA) Urine Ketones Urine Blood Urine Nitrate Urine Bilirubin Urine Urobilinogen Ur Leukocyte Esterase Urine RBC Urine WBC Ur Epithelial Cells Amorphous Sediment Urine Bacteria Salicylates Urine Opiates Screen Urine Methadone Screen Acetaminophen Ur Barbiturates Screen Ur Phencyclidine Scrn Ur Amphetamines Screen U Benzodiazepines Scrn U Oth Cocaine Metabols U Cannabinoids Screen Alcohol, Quantitative < 10 01/21/18 01/21/18 01/21/18 18:39 18:39 18:39 WBC RBC Hgb Hct MCV MCH MCHC RDW Plt Count MPV Gran % Lymph % (Auto) [place] % (Auto) Eos % (Auto) Baso % (Auto) Gran # Lymph # (Auto) [place] # (Auto) Eos # (Auto) Baso # (Auto) Sodium Potassium Chloride Carbon Dioxide Anion Gap BUN Creatinine Est GFR ( Amer) Est GFR (Non-Af Amer) Random Glucose Calcium Magnesium Total Bilirubin AST ALT Alkaline Phosphatase Total Creatine Kinase Total Protein Albumin Globulin Albumin/Globulin Ratio Urine Color Yellow Urine Appearance Clear Urine pH 6.5 Ur Specific [place] 1.025 Urine Protein 30 H Urine Glucose (UA) Negative Urine Ketones Trace H Urine Blood Negative Urine Nitrate Negative Urine Bilirubin Small H Urine Urobilinogen 4.0 H Ur Leukocyte Esterase Negative Urine RBC Negative Urine WBC 1 - 3 Ur Epithelial Cells 1 - 3 Amorphous Sediment Moderate Urine Bacteria Few Salicylates 10 Urine Opiates Screen Negative Urine Methadone Screen Negative Acetaminophen < 10.0 L Ur Barbiturates Screen Negative Ur Phencyclidine Scrn Negative Ur Amphetamines Screen No result U Benzodiazepines Scrn Negative U Oth Cocaine Metabols Negative U Cannabinoids Screen Positive H Alcohol, Quantitative Assessment & Plan - Assessment and Plan (Free Text) Assessment: 27 year old male with a medical history of methamphetamine use who presented with palpitations, chest discomfort, altered mentation (noted in ED and by EMS) in the setting of methamphetamine use (though UDS did not show this) and was given 4 L of NS via bolus and haldol/Ativan. Patient was also noted to be persistently hypotensive and with a leukocytosis and hence admitted to the ICU for closer monitoring Plan: 1) Leukocytosis (possibly reactive) - Empirically started on broad spectrum antibiotics with Vancomycin and Zosyn - Serum Procalcitonin - Urine and blood cultures - VBG with lactate - Infectious disease consulted, Dr. Melissa 2) Hypotension secondary to sepsis versus sedation - 150 ml/hr of NS - 4 L of fluids given - Maintain MAP over 65 3) Urinary retention - Insert Hauser - Strict I/O 4) Palpitations and chest discomfort - Initial EKG showed sinus tachycardia - Troponin I order - Repeat EKG at 23:59 as per Poison Control (4 hours after first EKG) - Cardiology consulted, Dr. Shirley 5) Agitation in the setting of drug abuse - Ativan 2 mg q6h PRN for agitation - Neurochecks - Fall precautions - Seizure Precautions - Head CT performed, interpretation pending - UDS positive for cannabinoids 6) DVT prophylaxis/Diet - SCD - HHD Case reviewed and discussed with attending physician Dr. Finley - Date & Time Date: 01/21/18 Time: 21:47 <Carlzo Finley - Last Filed: 01/22/18 04:01> Results - Vital Signs Recent Vital Signs: Last Vital Signs Temp 97.7 F 01/21/18 21:50 Pulse 95 H 01/21/18 23:36 Resp 18 01/21/18 23:36 BP 93/50 L 01/21/18 23:36 Pulse Ox 98 01/21/18 23:36 - Labs Result Diagrams: 01/21/18 18:22 01/21/18 18:22 Labs: Laboratory Results - last 24 hr 01/21/18 01/21/18 01/21/18 18:22 18:22 18:22 WBC 19.5 H D RBC 5.07 Hgb 15.7 D Hct 46.3 MCV 91.3 MCH 31.0 MCHC 33.9 RDW 13.4 Plt Count 288 MPV 10.0 Gran % 26.7 L Lymph % (Auto) 58.3 H [place] % (Auto) 7.5 H Eos % (Auto) 7.2 H Baso % (Auto) 0.3 Gran # 5.19 Lymph # (Auto) 11.4 H [place] # (Auto) 1.5 H Eos # (Auto) 1.4 H Baso # (Auto) 0.06 pO2 VBG pH VBG pCO2 VBG HCO3 VBG Total CO2 VBG O2 Sat (Calc) VBG Base Excess VBG Potassium Glucose Lactate FiO2 Sodium 144 Potassium 5.2 H Chloride 103 Carbon Dioxide 18 L Anion Gap 28 H BUN 14 Creatinine 1.0 Est GFR ( Amer) > 60 Est GFR (Non-Af Amer) > 60 Random Glucose 139 H Calcium 10.2 Magnesium 2.3 H Total Bilirubin 1.1 AST 39 ALT 38 Alkaline Phosphatase 95 Total Creatine Kinase 165 Troponin I Total Protein 8.0 Albumin 4.8 Globulin 3.2 Albumin/Globulin Ratio 1.5 Venous Blood Potassium Urine Color Urine Appearance Urine pH Ur Specific [place] Urine Protein Urine Glucose (UA) Urine Ketones Urine Blood Urine Nitrate Urine Bilirubin Urine Urobilinogen Ur Leukocyte Esterase Urine RBC Urine WBC Ur Epithelial Cells Amorphous Sediment Urine Bacteria Salicylates Urine Opiates Screen Urine Methadone Screen Acetaminophen Ur Barbiturates Screen Ur Phencyclidine Scrn Ur Amphetamines Screen U Benzodiazepines Scrn U Oth Cocaine Metabols U Cannabinoids Screen Alcohol, Quantitative < 10 01/21/18 01/21/18 01/21/18 18:39 18:39 18:39 WBC RBC Hgb Hct MCV MCH MCHC RDW Plt Count MPV Gran % Lymph % (Auto) [place] % (Auto) Eos % (Auto) Baso % (Auto) Gran # Lymph # (Auto) [place] # (Auto) Eos # (Auto) Baso # (Auto) pO2 VBG pH VBG pCO2 VBG HCO3 VBG Total CO2 VBG O2 Sat (Calc) VBG Base Excess VBG Potassium Glucose Lactate FiO2 Sodium Potassium Chloride Carbon Dioxide Anion Gap BUN Creatinine Est GFR ( Amer) Est GFR (Non-Af Amer) Random Glucose Calcium Magnesium Total Bilirubin AST ALT Alkaline Phosphatase Total Creatine Kinase Troponin I Total Protein Albumin Globulin Albumin/Globulin Ratio Venous Blood Potassium Urine Color Yellow Urine Appearance Clear Urine pH 6.5 Ur Specific [place] 1.025 Urine Protein 30 H Urine Glucose (UA) Negative Urine Ketones Trace H Urine Blood Negative Urine Nitrate Negative Urine Bilirubin Small H Urine Urobilinogen 4.0 H Ur Leukocyte Esterase Negative Urine RBC Negative Urine WBC 1 - 3 Ur Epithelial Cells 1 - 3 Amorphous Sediment Moderate Urine Bacteria Few Salicylates 10 Urine Opiates Screen Negative Urine Methadone Screen Negative Acetaminophen < 10.0 L Ur Barbiturates Screen Negative Ur Phencyclidine Scrn Negative Ur Amphetamines Screen No result U Benzodiazepines Scrn Negative U Oth Cocaine Metabols Negative U Cannabinoids Screen Positive H Alcohol, Quantitative 01/21/18 01/21/18 01/21/18 21:12 21:29 22:53 WBC RBC Hgb Hct MCV MCH MCHC RDW Plt Count MPV Gran % Lymph % (Auto) [place] % (Auto) Eos % (Auto) Baso % (Auto) Gran # Lymph # (Auto) [place] # (Auto) Eos # (Auto) Baso # (Auto) pO2 229 H VBG pH 7.34 VBG pCO2 48.0 VBG HCO3 25.9 VBG Total CO2 27.4 VBG O2 Sat (Calc) 100.0 H VBG Base Excess -0.4 L VBG Potassium 3.8 Glucose 96 Lactate 0.5 L FiO2 21.0 Sodium 137.0 Potassium Chloride 111.0 H Carbon Dioxide Anion Gap BUN Creatinine Est GFR ( Amer) Est GFR (Non-Af Amer) Random Glucose Calcium Magnesium Total Bilirubin AST ALT Alkaline Phosphatase Total Creatine Kinase Troponin I < 0.01 Total Protein Albumin Globulin Albumin/Globulin Ratio Venous Blood Potassium 3.8 Urine Color Urine Appearance Urine pH Ur Specific [place] Urine Protein Urine Glucose (UA) Urine Ketones Urine Blood Urine Nitrate Urine Bilirubin Urine Urobilinogen Ur Leukocyte Esterase Urine RBC Urine WBC Ur Epithelial Cells Amorphous Sediment Urine Bacteria Salicylates 5 Urine Opiates Screen Urine Methadone Screen Acetaminophen < 10.0 L Ur Barbiturates Screen Ur Phencyclidine Scrn Ur Amphetamines Screen U Benzodiazepines Scrn U Oth Cocaine Metabols U Cannabinoids Screen Alcohol, Quantitative Attending/Attestation - Attestation I have personally seen and examined this patient.: Yes I have fully participated in the care of the patient.: Yes I have reviewed all pertinent clinical information: Yes Notes (Text): 01/22/18 03:53 Patient was seen when he was in the ER in bed # 4. When I saw him , he was not responding to verbal/tactile stimuli.BP was 79/38, HR was 114/min and he was receiving 3rd litre of fluid. Medical record was reviewed. Agree with history, physical examination, assessment and plan. This 27 year old white male with history of substance abuse, methamphetamine use, former smoker, anxiety, depression, tonsillectomy was admitted with heroine overdose, speed use, hypotension, agitation, leukocytosis, lymphocytosis, hyperkalemia, metabolic acidosis, anion gap of 28 .
[2018-01-21] MEDS ORDERED: Sodium Chloride 0.9% 1,000 ML IV SCH (21:15)
[2018-01-21 21:34] LABS: VENOUS BLOOD GAS BASE EXCESS -0.4 mmol/L (0.0-2.0); VENOUS BLOOD GAS PO2 229 mm/Hg (30-55); VENOUS BLOOD PH 7.34 (7.32-7.43)
[2018-01-21 21:50] LABS: ACETAMINOPHEN < 10.0 ug/ml (10.0-20.0); SALICYLATE 5 mg/dL (2.0-20.0)
[2018-01-22 06:59] LABS: BASO # 0.02 K/mm3 (0.0-2.0); BASO % 0.3 % (0.0-3.0); EOS # 0.6 (0.0-0.7); EOS % 8.4 % (1.5-5.0); GRAN # 3.44 (1.4-6.5); GRAN % 45.7 % (50.0-68.0); HEMOGLOBIN 13.3 g/dL (14.0-18.0); LYMPH # 2.7 (1.2-3.4); MEAN CELL VOLUME 89.9 fl (80.0-105.0); MEAN CORPUSCULAR HEMOGLOBIN 30.5 pg (25.0-35.0); MEAN CORPUSCULAR HGB CONC 33.9 g/dl (31.0-37.0); MEAN PLATELET VOLUME 9.2 fl (7.0-11.0); MONO # 0.7 (0.1-0.6); MONO % 9.6 % (1.0-6.0); RBC 4.36 10^6/uL (3.5-6.1); RED CELL DISTRIBUTION WIDTH 13.1 % (11.5-14.5); WHITE BLOOD COUNT 7.5 10^3/ul (4.5-11.0)
[2018-01-22 07:16] LABS: ALB/GLOB RATIO 1.1 (1.1-1.8); ALBUMIN 2.9 g/dL (3.0-4.8); ALT/SGPT 43 U/L (7-56); AST/SGOT 52 U/L (17-59); BLOOD UREA NITROGEN 9 mg/dL (7-21); CALCIUM 7.9 mg/dL (8.4-10.5); GFR NON-AFRICAN AMERICAN > 60
--- NOTE | 2018-01-22 07:22 | CP.CCUPN ---
<Yuri Borges - Last Filed: 01/22/18 10:39> CCU Subjective - Physician Review Subjective (Free Text): Yuri Borges DO, PGY-1 ICU Progress Note for Dr. Moore Patient is a 27 year old male with PMH of polysubstance abuse admitted to ICU for hypotension and tachycardia not responsive to IVF following gamma hydroxybutyrate use. He is sedated s/p 4 mg ativan and 10 mg haldol for agitation last night. Lowest MAP in ED was 51. MAP is now > 70. Patient is responsive and opens eyes when spoken to and responds to painful stimuli. CCU Objective - Vital Signs / Intake & Output Vital Signs (Last 4 hours): Vital Signs Temp Pulse Resp BP Pulse Ox 01/22/18 07:00 83 16 106/49 L 99 01/22/18 06:59 88 17 98 01/22/18 06:50 81 15 96 01/22/18 06:40 86 19 100 01/22/18 06:30 83 17 99 01/22/18 06:20 86 15 99 01/22/18 06:10 85 17 100 01/22/18 06:00 84 14 106/58 L 98 01/22/18 05:50 83 13 98 01/22/18 05:40 82 14 97 01/22/18 05:30 85 15 98 01/22/18 05:20 86 15 98 01/22/18 05:10 84 14 98 01/22/18 05:07 99 F 86 14 99/40 L 01/22/18 05:00 86 13 99/40 L 98 01/22/18 04:50 80 17 97 01/22/18 04:40 80 19 98 01/22/18 04:30 83 13 99 01/22/18 04:20 85 17 98 01/22/18 04:10 87 14 97 01/22/18 04:00 98.8 F 83 13 100/46 L 97 01/22/18 03:50 88 13 96 01/22/18 03:40 88 12 96 01/22/18 03:30 81 12 96 01/22/18 03:20 90 98 Intake and Output (Last 8hrs): Intake & Output 01/21/18 01/22/18 01/22/18 22:59 06:59 14:59 Intake Total 900 Output Total 2800 Balance -1900 Weight 140 lb Intake: Oral 0 Other 900 Output: Urine 2800 Urethral (Hauser) 2800 Stool 0 Urine/Stool Mix 0 Other: Voiding Method Indwelling Catheter # Bowel Movements 0 - Physical Exam Head: Positive for: Atraumatic Pupils: Positive for: Other (Dilated, equal, and minimally responsive to light) Conjunctiva: Positive for: Normal Mouth: Positive for: Dry Pharnyx: Positive for: Normal. Negative for: ERYTHEMA, EXUDATE Neck: Positive for: Normal Range of Motion Respiratory/Chest: Positive for: Clear to Auscultation. Negative for: Respiratory Distress, Accessory Muscle Use, Wheezes, Rales, Rhonchi Cardiovascular: Positive for: Regular Rate and Rhythm, Normal S1, S2. Negative for: Murmurs, Rub, Gallop Abdomen: Negative for: Distention, Rebound, Guarding Upper Extremity: Positive for: Other (multiple track hernandez visible on both arms bilaterally). Negative for: Cyanosis, Edema Lower Extremity: Positive for: Normal Inspection. Negative for: Edema Neurological: Positive for: Motor Func Grossly Intact Skin: Positive for: Warm, Dry, Normal Color. Negative for: Laceration, Abscess Psychiatric: Positive for: Other (sedated) - Medications Active Medications: Active Medications Generic Name Dose Route Start Last Admin Trade Name Freq PRN Reason Stop Dose Admin Sodium Chloride 1,000 mls @ 150 mls/hr 01/21/18 21:15 01/21/18 23:02 Sodium Chloride 0.9% IV 150 mls/hr .[id number] MIAH Administration Vancomycin HCl 1 gm in 250 mls @ 167 mls/hr 01/22/18 10:00 Vancomycin 1gm IVPB DAILY MIAH Protocol Lorazepam 2 mg 01/21/18 21:27 01/22/18 01:48 Ativan IVP 2 mg Q6H PRN Administration Agitation Protocol - Patient Studies Lab Studies: Lab Studies 01/22/18 01/22/18 01/21/18 Range/Units 05:50 05:50 22:53 WBC 7.5 D (4.5-11.0) 10^3/ul RBC 4.36 (3.5-6.1) 10^6/uL Hgb 13.3 L D (14.0-18.0) g/dL Hct 39.2 L (42.0-52.0) % MCV 89.9 (80.0-105.0) fl MCH 30.5 (25.0-35.0) pg MCHC 33.9 (31.0-37.0) g/dl RDW 13.1 (11.5-14.5) % Plt Count 175 (120.0-450.0) 10^3/uL MPV 9.2 (7.0-11.0) fl Gran % 45.7 L (50.0-68.0) % Lymph % (Auto) 36.0 H (22.0-35.0) % [place] % (Auto) 9.6 H (1.0-6.0) % Eos % (Auto) 8.4 H (1.5-5.0) % Baso % (Auto) 0.3 (0.0-3.0) % Gran # 3.44 (1.4-6.5) Lymph # (Auto) 2.7 (1.2-3.4) [place] # (Auto) 0.7 H (0.1-0.6) Eos # (Auto) 0.6 (0.0-0.7) Baso # (Auto) 0.02 (0.0-2.0) K/mm3 pO2 (30-55) mm/Hg VBG pH (7.32-7.43) VBG pCO2 (40-60) VBG HCO3 (21-28) mmol/l VBG Total CO2 (22-28) mmol.L VBG O2 Sat (Calc) (40-65) % VBG Base Excess (0.0-2.0) mmol/L VBG Potassium (3.6-5.2) mmol/L Glucose (75-110) mg/dl Lactate (0.7-2.1) mmol/L FiO2 % Sodium 136 (132-148) mmol/L Potassium 3.6 (3.6-5.0) mmol/L Chloride 107 (98-107) mmol/L Carbon Dioxide 24 (21-33) mmol/L Anion Gap 9 L (10-20) BUN 9 (7-21) mg/dL Creatinine 0.6 L (0.8-1.5) mg/dl Est GFR ( Amer) > 60 Est GFR (Non-Af Amer) > 60 Random Glucose 86 (70-110) mg/dL Calcium 7.9 L (8.4-10.5) mg/dL Magnesium 1.9 (1.7-2.2) mg/dL Total Bilirubin 1.3 (0.2-1.3) mg/dL AST 52 (17-59) U/L ALT 43 (7-56) U/L Alkaline Phosphatase 64 (38-126) U/L Total Creatine Kinase (35-230) U/L Troponin I < 0.01 ng/mL Total Protein 5.6 L (5.8-8.3) g/dL Albumin 2.9 L (3.0-4.8) g/dL Globulin 2.7 gm/dL Albumin/Globulin Ratio 1.1 (1.1-1.8) Venous Blood Potassium (3.6-5.2) mmol/L Urine Color (YELLOW) Urine Appearance (CLEAR) Urine pH (4.7-8.0) Ur Specific [place] (1.005-1.035) Urine Protein (<30 mg/dL) mg/dL Urine Glucose (UA) (NEGATIVE) mg/dL Urine Ketones (NEGATIVE) mg/dL Urine Blood (NEGATIVE) Urine Nitrate (NEGATIVE) Urine Bilirubin (NEGATIVE) Urine Urobilinogen (<1 E.U./dL) E.U./dL Ur Leukocyte Esterase (NEGATIVE) Clark/uL Urine RBC (0-2) /hpf Urine WBC (0-6) /hpf Ur Epithelial Cells (0-5) /hpf Amorphous Sediment Urine Bacteria (NEG) Salicylates (2.0-20.0) mg/dL Urine Opiates Screen (NEGATIVE) Urine Methadone Screen (NEGATIVE) Acetaminophen (10.0-20.0) ug/ml Ur Barbiturates Screen (NEGATIVE) Ur Phencyclidine Scrn (NEGATIVE) Ur Amphetamines Screen (NEGATIVE) U Benzodiazepines Scrn (NEGATIVE) U Oth Cocaine Metabols (NEGATIVE) U Cannabinoids Screen (NEGATIVE) Alcohol, Quantitative (0-10) mg/dL 01/21/18 01/21/18 01/21/18 Range/Units 21:29 21:12 18:39 WBC (4.5-11.0) 10^3/ul RBC (3.5-6.1) 10^6/uL Hgb (14.0-18.0) g/dL Hct (42.0-52.0) % MCV (80.0-105.0) fl MCH (25.0-35.0) pg MCHC (31.0-37.0) g/dl RDW (11.5-14.5) % Plt Count (120.0-450.0) 10^3/uL MPV (7.0-11.0) fl Gran % (50.0-68.0) % Lymph % (Auto) (22.0-35.0) % [place] % (Auto) (1.0-6.0) % Eos % (Auto) (1.5-5.0) % Baso % (Auto) (0.0-3.0) % Gran # (1.4-6.5) Lymph # (Auto) (1.2-3.4) [place] # (Auto) (0.1-0.6) Eos # (Auto) (0.0-0.7) Baso # (Auto) (0.0-2.0) K/mm3 pO2 229 H (30-55) mm/Hg VBG pH 7.34 (7.32-7.43) VBG pCO2 48.0 (40-60) VBG HCO3 25.9 (21-28) mmol/l VBG Total CO2 27.4 (22-28) mmol.L VBG O2 Sat (Calc) 100.0 H (40-65) % VBG Base Excess -0.4 L (0.0-2.0) mmol/L VBG Potassium 3.8 (3.6-5.2) mmol/L Glucose 96 (75-110) mg/dl Lactate 0.5 L (0.7-2.1) mmol/L FiO2 21.0 % Sodium 137.0 (132-148) mmol/L Potassium (3.6-5.0) mmol/L Chloride 111.0 H (98-107) mmol/L Carbon Dioxide (21-33) mmol/L Anion Gap (10-20) BUN (7-21) mg/dL Creatinine (0.8-1.5) mg/dl Est GFR ( Amer) Est GFR (Non-Af Amer) Random Glucose (70-110) mg/dL Calcium (8.4-10.5) mg/dL Magnesium (1.7-2.2) mg/dL Total Bilirubin (0.2-1.3) mg/dL AST (17-59) U/L ALT (7-56) U/L Alkaline Phosphatase (38-126) U/L Total Creatine Kinase (35-230) U/L Troponin I ng/mL Total Protein (5.8-8.3) g/dL Albumin (3.0-4.8) g/dL Globulin gm/dL Albumin/Globulin Ratio (1.1-1.8) Venous Blood Potassium 3.8 (3.6-5.2) mmol/L Urine Color (YELLOW) Urine Appearance (CLEAR) Urine pH (4.7-8.0) Ur Specific [place]ley (1.005-1.035) Urine Protein (<30 mg/dL) mg/dL Urine Glucose (UA) (NEGATIVE) mg/dL Urine Ketones (NEGATIVE) mg/dL Urine Blood (NEGATIVE) Urine Nitrate (NEGATIVE) Urine Bilirubin (NEGATIVE) Urine Urobilinogen (<1 E.U./dL) E.U./dL Ur Leukocyte Esterase (NEGATIVE) Clark/uL Urine RBC (0-2) /hpf Urine WBC (0-6) /hpf Ur Epithelial Cells (0-5) /hpf Amorphous Sediment Urine Bacteria (NEG) Salicylates 5 10 (2.0-20.0) mg/dL Urine Opiates Screen (NEGATIVE) Urine Methadone Screen (NEGATIVE) Acetaminophen < 10.0 L < 10.0 L (10.0-20.0) ug/ml Ur Barbiturates Screen (NEGATIVE) Ur Phencyclidine Scrn (NEGATIVE) Ur Amphetamines Screen (NEGATIVE) U Benzodiazepines Scrn (NEGATIVE) U Oth Cocaine Metabols (NEGATIVE) U Cannabinoids Screen (NEGATIVE) Alcohol, Quantitative (0-10) mg/dL 01/21/18 01/21/18 01/21/18 Range/Units 18:39 18:39 18:22 WBC (4.5-11.0) 10^3/ul RBC (3.5-6.1) 10^6/uL Hgb (14.0-18.0) g/dL Hct (42.0-52.0) % MCV (80.0-105.0) fl MCH (25.0-35.0) pg MCHC (31.0-37.0) g/dl RDW (11.5-14.5) % Plt Count (120.0-450.0) 10^3/uL MPV (7.0-11.0) fl Gran % (50.0-68.0) % Lymph % (Auto) (22.0-35.0) % [place] % (Auto) (1.0-6.0) % Eos % (Auto) (1.5-5.0) % Baso % (Auto) (0.0-3.0) % Gran # (1.4-6.5) Lymph # (Auto) (1.2-3.4) [place] # (Auto) (0.1-0.6) Eos # (Auto) (0.0-0.7) Baso # (Auto) (0.0-2.0) K/mm3 pO2 (30-55) mm/Hg VBG pH (7.32-7.43) VBG pCO2 (40-60) VBG HCO3 (21-28) mmol/l VBG Total CO2 (22-28) mmol.L VBG O2 Sat (Calc) (40-65) % VBG Base Excess (0.0-2.0) mmol/L VBG Potassium (3.6-5.2) mmol/L Glucose (75-110) mg/dl Lactate (0.7-2.1) mmol/L FiO2 % Sodium (132-148) mmol/L Potassium (3.6-5.0) mmol/L Chloride (98-107) mmol/L Carbon Dioxide (21-33) mmol/L Anion Gap (10-20) BUN (7-21) mg/dL Creatinine (0.8-1.5) mg/dl Est GFR ( Amer) Est GFR (Non-Af Amer) Random Glucose (70-110) mg/dL Calcium (8.4-10.5) mg/dL Magnesium (1.7-2.2) mg/dL Total Bilirubin (0.2-1.3) mg/dL AST (17-59) U/L ALT (7-56) U/L Alkaline Phosphatase (38-126) U/L Total Creatine Kinase (35-230) U/L Troponin I ng/mL Total Protein (5.8-8.3) g/dL Albumin (3.0-4.8) g/dL Globulin gm/dL Albumin/Globulin Ratio (1.1-1.8) Venous Blood Potassium (3.6-5.2) mmol/L Urine Color Yellow (YELLOW) Urine Appearance Clear (CLEAR) Urine pH 6.5 (4.7-8.0) Ur Specific [place]ley 1.025 (1.005-1.035) Urine Protein 30 H (<30 mg/dL) mg/dL Urine Glucose (UA) Negative (NEGATIVE) mg/dL Urine Ketones Trace H (NEGATIVE) mg/dL Urine Blood Negative (NEGATIVE) Urine Nitrate Negative (NEGATIVE) Urine Bilirubin Small H (NEGATIVE) Urine Urobilinogen 4.0 H (<1 E.U./dL) E.U./dL Ur Leukocyte Esterase Negative (NEGATIVE) Clark/uL Urine RBC Negative (0-2) /hpf Urine WBC 1 - 3 (0-6) /hpf Ur Epithelial Cells 1 - 3 (0-5) /hpf Amorphous Sediment Moderate Urine Bacteria Few (NEG) Salicylates (2.0-20.0) mg/dL Urine Opiates Screen Negative (NEGATIVE) Urine Methadone Screen Negative (NEGATIVE) Acetaminophen (10.0-20.0) ug/ml Ur Barbiturates Screen Negative (NEGATIVE) Ur Phencyclidine Scrn Negative (NEGATIVE) Ur Amphetamines Screen No result (NEGATIVE) U Benzodiazepines Scrn Negative (NEGATIVE) U Oth Cocaine Metabols Negative (NEGATIVE) U Cannabinoids Screen Positive H (NEGATIVE) Alcohol, Quantitative < 10 (0-10) mg/dL 01/21/18 01/21/18 Range/Units 18:22 18:22 WBC 19.5 H D (4.5-11.0) 10^3/ul RBC 5.07 (3.5-6.1) 10^6/uL Hgb 15.7 D (14.0-18.0) g/dL Hct 46.3 (42.0-52.0) % MCV 91.3 (80.0-105.0) fl MCH 31.0 (25.0-35.0) pg MCHC 33.9 (31.0-37.0) g/dl RDW 13.4 (11.5-14.5) % Plt Count 288 (120.0-450.0) 10^3/uL MPV 10.0 (7.0-11.0) fl Gran % 26.7 L (50.0-68.0) % Lymph % (Auto) 58.3 H (22.0-35.0) % [place] % (Auto) 7.5 H (1.0-6.0) % Eos % (Auto) 7.2 H (1.5-5.0) % Baso % (Auto) 0.3 (0.0-3.0) % Gran # 5.19 (1.4-6.5) Lymph # (Auto) 11.4 H (1.2-3.4) [place] # (Auto) 1.5 H (0.1-0.6) Eos # (Auto) 1.4 H (0.0-0.7) Baso # (Auto) 0.06 (0.0-2.0) K/mm3 pO2 (30-55) mm/Hg VBG pH (7.32-7.43) VBG pCO2 (40-60) VBG HCO3 (21-28) mmol/l VBG Total CO2 (22-28) mmol.L VBG O2 Sat (Calc) (40-65) % VBG Base Excess (0.0-2.0) mmol/L VBG Potassium (3.6-5.2) mmol/L Glucose (75-110) mg/dl Lactate (0.7-2.1) mmol/L FiO2 % Sodium 144 (132-148) mmol/L Potassium 5.2 H (3.6-5.0) mmol/L Chloride 103 (98-107) mmol/L Carbon Dioxide 18 L (21-33) mmol/L Anion Gap 28 H (10-20) BUN 14 (7-21) mg/dL Creatinine 1.0 (0.8-1.5) mg/dl Est GFR ( Amer) > 60 Est GFR (Non-Af Amer) > 60 Random Glucose 139 H (70-110) mg/dL Calcium 10.2 (8.4-10.5) mg/dL Magnesium 2.3 H (1.7-2.2) mg/dL Total Bilirubin 1.1 (0.2-1.3) mg/dL AST 39 (17-59) U/L ALT 38 (7-56) U/L Alkaline Phosphatase 95 (38-126) U/L Total Creatine Kinase 165 (35-230) U/L Troponin I ng/mL Total Protein 8.0 (5.8-8.3) g/dL Albumin 4.8 (3.0-4.8) g/dL Globulin 3.2 gm/dL Albumin/Globulin Ratio 1.5 (1.1-1.8) Venous Blood Potassium (3.6-5.2) mmol/L Urine Color (YELLOW) Urine Appearance (CLEAR) Urine pH (4.7-8.0) Ur Specific [place] (1.005-1.035) Urine Protein (<30 mg/dL) mg/dL Urine Glucose (UA) (NEGATIVE) mg/dL Urine Ketones (NEGATIVE) mg/dL Urine Blood (NEGATIVE) Urine Nitrate (NEGATIVE) Urine Bilirubin (NEGATIVE) Urine Urobilinogen (<1 E.U./dL) E.U./dL Ur Leukocyte Esterase (NEGATIVE) Clark/uL Urine RBC (0-2) /hpf Urine WBC (0-6) /hpf Ur Epithelial Cells (0-5) /hpf Amorphous Sediment Urine Bacteria (NEG) Salicylates (2.0-20.0) mg/dL Urine Opiates Screen (NEGATIVE) Urine Methadone Screen (NEGATIVE) Acetaminophen (10.0-20.0) ug/ml Ur Barbiturates Screen (NEGATIVE) Ur Phencyclidine Scrn (NEGATIVE) Ur Amphetamines Screen (NEGATIVE) U Benzodiazepines Scrn (NEGATIVE) U Oth Cocaine Metabols (NEGATIVE) U Cannabinoids Screen (NEGATIVE) Alcohol, Quantitative (0-10) mg/dL Laboratory Results - last 24 hr 01/21/18 01/21/18 01/21/18 18:22 18:22 18:22 WBC 19.5 H D RBC 5.07 Hgb 15.7 D Hct 46.3 MCV 91.3 MCH 31.0 MCHC 33.9 RDW 13.4 Plt Count 288 MPV 10.0 Gran % 26.7 L Lymph % (Auto) 58.3 H [place] % (Auto) 7.5 H Eos % (Auto) 7.2 H Baso % (Auto) 0.3 Gran # 5.19 Lymph # (Auto) 11.4 H [place] # (Auto) 1.5 H Eos # (Auto) 1.4 H Baso # (Auto) 0.06 pO2 VBG pH VBG pCO2 VBG HCO3 VBG Total CO2 VBG O2 Sat (Calc) VBG Base Excess VBG Potassium Glucose Lactate FiO2 Sodium 144 Potassium 5.2 H Chloride 103 Carbon Dioxide 18 L Anion Gap 28 H BUN 14 Creatinine 1.0 Est GFR ( Amer) > 60 Est GFR (Non-Af Amer) > 60 Random Glucose 139 H Calcium 10.2 Magnesium 2.3 H Total Bilirubin 1.1 AST 39 ALT 38 Alkaline Phosphatase 95 Total Creatine Kinase 165 Troponin I Total Protein 8.0 Albumin 4.8 Globulin 3.2 Albumin/Globulin Ratio 1.5 Venous Blood Potassium Urine Color Urine Appearance Urine pH Ur Specific [place] Urine Protein Urine Glucose (UA) Urine Ketones Urine Blood Urine Nitrate Urine Bilirubin Urine Urobilinogen Ur Leukocyte Esterase Urine RBC Urine WBC Ur Epithelial Cells Amorphous Sediment Urine Bacteria Salicylates Urine Opiates Screen Urine Methadone Screen Acetaminophen Ur Barbiturates Screen Ur Phencyclidine Scrn Ur Amphetamines Screen U Benzodiazepines Scrn U Oth Cocaine Metabols U Cannabinoids Screen Alcohol, Quantitative < 10 01/21/18 01/21/18 01/21/18 18:39 18:39 18:39 WBC RBC Hgb Hct MCV MCH MCHC RDW Plt Count MPV Gran % Lymph % (Auto) [place] % (Auto) Eos % (Auto) Baso % (Auto) Gran # Lymph # (Auto) [place] # (Auto) Eos # (Auto) Baso # (Auto) pO2 VBG pH VBG pCO2 VBG HCO3 VBG Total CO2 VBG O2 Sat (Calc) VBG Base Excess VBG Potassium Glucose Lactate FiO2 Sodium Potassium Chloride Carbon Dioxide Anion Gap BUN Creatinine Est GFR ( Amer) Est GFR (Non-Af Amer) Random Glucose Calcium Magnesium Total Bilirubin AST ALT Alkaline Phosphatase Total Creatine Kinase Troponin I Total Protein Albumin Globulin Albumin/Globulin Ratio Venous Blood Potassium Urine Color Yellow Urine Appearance Clear Urine pH 6.5 Ur Specific [place] 1.025 Urine Protein 30 H Urine Glucose (UA) Negative Urine Ketones Trace H Urine Blood Negative Urine Nitrate Negative Urine Bilirubin Small H Urine Urobilinogen 4.0 H Ur Leukocyte Esterase Negative Urine RBC Negative Urine WBC 1 - 3 Ur Epithelial Cells 1 - 3 Amorphous Sediment Moderate Urine Bacteria Few Salicylates 10 Urine Opiates Screen Negative Urine Methadone Screen Negative Acetaminophen < 10.0 L Ur Barbiturates Screen Negative Ur Phencyclidine Scrn Negative Ur Amphetamines Screen No result U Benzodiazepines Scrn Negative U Oth Cocaine Metabols Negative U Cannabinoids Screen Positive H Alcohol, Quantitative 01/21/18 01/21/18 01/21/18 21:12 21:29 22:53 WBC RBC Hgb Hct MCV MCH MCHC RDW Plt Count MPV Gran % Lymph % (Auto) [place] % (Auto) Eos % (Auto) Baso % (Auto) Gran # Lymph # (Auto) [place] # (Auto) Eos # (Auto) Baso # (Auto) pO2 229 H VBG pH 7.34 VBG pCO2 48.0 VBG HCO3 25.9 VBG Total CO2 27.4 VBG O2 Sat (Calc) 100.0 H VBG Base Excess -0.4 L VBG Potassium 3.8 Glucose 96 Lactate 0.5 L FiO2 21.0 Sodium 137.0 Potassium Chloride 111.0 H Carbon Dioxide Anion Gap BUN Creatinine Est GFR ( Amer) Est GFR (Non-Af Amer) Random Glucose Calcium Magnesium Total Bilirubin AST ALT Alkaline Phosphatase Total Creatine Kinase Troponin I < 0.01 Total Protein Albumin Globulin Albumin/Globulin Ratio Venous Blood Potassium 3.8 Urine Color Urine Appearance Urine pH Ur Specific [place] Urine Protein Urine Glucose (UA) Urine Ketones Urine Blood Urine Nitrate Urine Bilirubin Urine Urobilinogen Ur Leukocyte Esterase Urine RBC Urine WBC Ur Epithelial Cells Amorphous Sediment Urine Bacteria Salicylates 5 Urine Opiates Screen Urine Methadone Screen Acetaminophen < 10.0 L Ur Barbiturates Screen Ur Phencyclidine Scrn Ur Amphetamines Screen U Benzodiazepines Scrn U Oth Cocaine Metabols U Cannabinoids Screen Alcohol, Quantitative 01/22/18 01/22/18 05:50 05:50 WBC 7.5 D RBC 4.36 Hgb 13.3 L D Hct 39.2 L MCV 89.9 MCH 30.5 MCHC 33.9 RDW 13.1 Plt Count 175 MPV 9.2 Gran % 45.7 L Lymph % (Auto) 36.0 H [place] % (Auto) 9.6 H Eos % (Auto) 8.4 H Baso % (Auto) 0.3 Gran # 3.44 Lymph # (Auto) 2.7 [place] # (Auto) 0.7 H Eos # (Auto) 0.6 Baso # (Auto) 0.02 pO2 VBG pH VBG pCO2 VBG HCO3 VBG Total CO2 VBG O2 Sat (Calc) VBG Base Excess VBG Potassium Glucose Lactate FiO2 Sodium 136 Potassium 3.6 Chloride 107 Carbon Dioxide 24 Anion Gap 9 L BUN 9 Creatinine 0.6 L Est GFR ( Amer) > 60 Est GFR (Non-Af Amer) > 60 Random Glucose 86 Calcium 7.9 L Magnesium 1.9 Total Bilirubin 1.3 AST 52 ALT 43 Alkaline Phosphatase 64 Total Creatine Kinase Troponin I Total Protein 5.6 L Albumin 2.9 L Globulin 2.7 Albumin/Globulin Ratio 1.1 Venous Blood Potassium Urine Color Urine Appearance Urine pH Ur Specific [place] Urine Protein Urine Glucose (UA) Urine Ketones Urine Blood Urine Nitrate Urine Bilirubin Urine Urobilinogen Ur Leukocyte Esterase Urine RBC Urine WBC Ur Epithelial Cells Amorphous Sediment Urine Bacteria Salicylates Urine Opiates Screen Urine Methadone Screen Acetaminophen Ur Barbiturates Screen Ur Phencyclidine Scrn Ur Amphetamines Screen U Benzodiazepines Scrn U Oth Cocaine Metabols U Cannabinoids Screen Alcohol, Quantitative EKG/Cardiology Studies: Cardiology / EKG Studies 01/21/18 18:11 EKG [ELECTROCARDIOGRAM] Stat Comment: Reason For Exam: SUBSTANCE ABUSE 01/21/18 23:50 EKG [ELECTROCARDIOGRAM] Routine Comment: Reason For Exam: tachycardic 01/22/18 07:00 EKG [ELECTROCARDIOGRAM] Routine Comment: Reason For Exam: tachycardic Review of Systems - Review of Systems Systems not reviewed;Unavailable: Intoxicated Critical Care Progress Note - Nutrition Nutrition: Nutrition Category Date Time Status Heart Healthy Diet [DIET] Diets 01/22/18 Breakfast Active Assessment/Plan - Assessment and Plan (Free Text) Assessment: 27 M with history of polysubstance abuse brought in by EMS for acute agitation 2/2 drug abuse admitted to ICU for hypotension and tachycardia not responsive to IVF. Plan: Neuro: -Patient received 4 mg ativan and 10 mg haldol in ED -Patient responds and opens eyes when called and grimaces with painful stimuli -Monitor neuro status -Reorient patient as necessary Cardio: -Lowest MAP in ED was 50 -Currently normotensive, RRR without signs or symptoms of HD compromise -Maintain MAP > 65 -Tachycardia on presentation likely 2/2 stimulant use -Troponin negative -Monitor for signs and symptoms of HD compromise Pulm: -No signs of respiratory distress -CTA bilaterally -Patient's SpO2 is consistently > 95% -Continue to monitor respiratory status s/p sedation -ABG repeated -O2 NC PRN ID: -Vanc and zosyn given in ED for leukocytosis, hypotension, tachycardia -Abx management per ID -WBC now 7.5 -Procal pending -Thurman cultures sent, results pending GI: -Continue regular diet -Protonix for GI prophylaxis /Nephro: -BUN/Cr stable -CK negative for rhabdo -Adequate UOP -Replete electrolytes as needed -Maintain euvolemia Endocrine: -Maintain euglycemia Heme: -H/H stable without signs of HD compromise -Continue to monitor H/H GI/DVT Prophylaxis: protonix, lovenox, SCDs Case and plan reviewed and discussed with my attending Dr. Teresa Borges, DO IM Resident PGY-1 <Mendel Moore - Last Filed: 01/22/18 12:13> CCU Objective - Vital Signs / Intake & Output Intake and Output (Last 8hrs): Intake & Output 01/21/18 01/22/18 01/22/18 22:59 06:59 14:59 Intake Total 900 Output Total 2800 Balance -1900 Weight 140 lb Intake: Oral 0 Other 900 Output: Urine 2800 Urethral (Hauser) 2800 Stool 0 Urine/Stool Mix 0 Other: Voiding Method Indwelling Catheter # Bowel Movements 0 - Medications Active Medications: Active Medications Generic Name Dose Route Start Last Admin Trade Name Guicho PRN Reason Stop Dose Admin Enoxaparin Sodium 40 mg 01/22/18 10:30 01/22/18 11:37 Lovenox SC 40 mg DAILY MIAH Administration Protocol Sodium Chloride 1,000 mls @ 150 mls/hr 01/21/18 21:15 01/21/18 23:02 Sodium Chloride 0.9% IV 150 mls/hr .[id number] MIAH Administration Vancomycin HCl 1 gm in 250 mls @ 167 mls/hr 01/22/18 10:00 01/22/18 11:35 Vancomycin 1gm IVPB 167 mls/hr DAILY MIAH Administration Protocol Piperacillin Sod/Tazobactam Sod 100 mls @ 200 mls/hr 01/22/18 12:00 01/22/18 11:37 Zosyn 3.375 In Ns 100ml IVPB 200 mls/hr Q6 MIAH Administration Protocol Pantoprazole Sodium 40 mg 01/22/18 10:30 01/22/18 11:38 Protonix Inj IVP 40 mg DAILY MIAH Administration - Patient Studies Lab Studies: Lab Studies 01/22/18 01/22/18 01/22/18 Range/Units 10:00 05:50 05:50 WBC 7.5 D (4.5-11.0) 10^3/ul RBC 4.36 (3.5-6.1) 10^6/uL Hgb 13.3 L D (14.0-18.0) g/dL Hct 39.2 L (42.0-52.0) % MCV 89.9 (80.0-105.0) fl MCH 30.5 (25.0-35.0) pg MCHC 33.9 (31.0-37.0) g/dl RDW 13.1 (11.5-14.5) % Plt Count 175 (120.0-450.0) 10^3/uL MPV 9.2 (7.0-11.0) fl Gran % 45.7 L (50.0-68.0) % Lymph % (Auto) 36.0 H (22.0-35.0) % [place] % (Auto) 9.6 H (1.0-6.0) % Eos % (Auto) 8.4 H (1.5-5.0) % Baso % (Auto) 0.3 (0.0-3.0) % Gran # 3.44 (1.4-6.5) Lymph # (Auto) 2.7 (1.2-3.4) [place] # (Auto) 0.7 H (0.1-0.6) Eos # (Auto) 0.6 (0.0-0.7) Baso # (Auto) 0.02 (0.0-2.0) K/mm3 pCO2 39 (35-45) mm/Hg pO2 100.0 (30-55) mm/Hg HCO3 23.6 (21-28) mmol/L ABG pH 7.39 (7.35-7.45) ABG Total CO2 24.8 (22-28) mmol.L ABG O2 Saturation 99.2 H (95-98) % ABG O2 Content 17.6 (15-23) ML/dl ABG Base Excess -1.2 (-2.0-3.0) mmol/L ABG Hemoglobin 12.9 (11.7-17.4) g/dL ABG Carboxyhemoglobin 1.8 H (0.5-1.5) % POC ABG HHb (Measured) 0.8 (0-5) % ABG Methemoglobin 0.8 (0.0-3.0) % ABG O2 Capacity 17.7 (16-24) mL/dl VBG pH (7.32-7.43) VBG pCO2 (40-60) VBG HCO3 (21-28) mmol/l VBG Total CO2 (22-28) mmol.L VBG O2 Sat (Calc) (40-65) % VBG Base Excess (0.0-2.0) mmol/L VBG Potassium (3.6-5.2) mmol/L Hgb O2 Saturation 96.6 (95.0-98.0) % Glucose (75-110) mg/dl Lactate (0.7-2.1) mmol/L FiO2 21.0 % Sodium 136 (132-148) mmol/L Potassium 3.6 (3.6-5.0) mmol/L Chloride 107 (98-107) mmol/L Carbon Dioxide 24 (21-33) mmol/L Anion Gap 9 L (10-20) BUN 9 (7-21) mg/dL Creatinine 0.6 L (0.8-1.5) mg/dl Est GFR ( Amer) > 60 Est GFR (Non-Af Amer) > 60 Random Glucose 86 (70-110) mg/dL Calcium 7.9 L (8.4-10.5) mg/dL Magnesium 1.9 (1.7-2.2) mg/dL Total Bilirubin 1.3 (0.2-1.3) mg/dL AST 52 (17-59) U/L ALT 43 (7-56) U/L Alkaline Phosphatase 64 (38-126) U/L Total Creatine Kinase (35-230) U/L Troponin I ng/mL Total Protein 5.6 L (5.8-8.3) g/dL Albumin 2.9 L (3.0-4.8) g/dL Globulin 2.7 gm/dL Albumin/Globulin Ratio 1.1 (1.1-1.8) Venous Blood Potassium (3.6-5.2) mmol/L Urine Color (YELLOW) Urine Appearance (CLEAR) Urine pH (4.7-8.0) Ur Specific [place] (1.005-1.035) Urine Protein (<30 mg/dL) mg/dL Urine Glucose (UA) (NEGATIVE) mg/dL Urine Ketones (NEGATIVE) mg/dL Urine Blood (NEGATIVE) Urine Nitrate (NEGATIVE) Urine Bilirubin (NEGATIVE) Urine Urobilinogen (<1 E.U./dL) E.U./dL Ur Leukocyte Esterase (NEGATIVE) Clark/uL Urine RBC (0-2) /hpf Urine WBC (0-6) /hpf Ur Epithelial Cells (0-5) /hpf Amorphous Sediment Urine Bacteria (NEG) Salicylates (2.0-20.0) mg/dL Urine Opiates Screen (NEGATIVE) Urine Methadone Screen (NEGATIVE) Acetaminophen (10.0-20.0) ug/ml Ur Barbiturates Screen (NEGATIVE) Ur Phencyclidine Scrn (NEGATIVE) Ur Amphetamines Screen (NEGATIVE) U Benzodiazepines Scrn (NEGATIVE) U Oth Cocaine Metabols (NEGATIVE) U Cannabinoids Screen (NEGATIVE) Alcohol, Quantitative (0-10) mg/dL 01/21/18 01/21/18 01/21/18 Range/Units 22:53 21:29 21:12 WBC (4.5-11.0) 10^3/ul RBC (3.5-6.1) 10^6/uL Hgb (14.0-18.0) g/dL Hct (42.0-52.0) % MCV (80.0-105.0) fl MCH (25.0-35.0) pg MCHC (31.0-37.0) g/dl RDW (11.5-14.5) % Plt Count (120.0-450.0) 10^3/uL MPV (7.0-11.0) fl Gran % (50.0-68.0) % Lymph % (Auto) (22.0-35.0) % [place] % (Auto) (1.0-6.0) % Eos % (Auto) (1.5-5.0) % Baso % (Auto) (0.0-3.0) % Gran # (1.4-6.5) Lymph # (Auto) (1.2-3.4) [place] # (Auto) (0.1-0.6) Eos # (Auto) (0.0-0.7) Baso # (Auto) (0.0-2.0) K/mm3 pCO2 (35-45) mm/Hg pO2 229 H (30-55) mm/Hg HCO3 (21-28) mmol/L ABG pH (7.35-7.45) ABG Total CO2 (22-28) mmol.L ABG O2 Saturation (95-98) % ABG O2 Content (15-23) ML/dl ABG Base Excess (-2.0-3.0) mmol/L ABG Hemoglobin (11.7-17.4) g/dL ABG Carboxyhemoglobin (0.5-1.5) % POC ABG HHb (Measured) (0-5) % ABG Methemoglobin (0.0-3.0) % ABG O2 Capacity (16-24) mL/dl VBG pH 7.34 (7.32-7.43) VBG pCO2 48.0 (40-60) VBG HCO3 25.9 (21-28) mmol/l VBG Total CO2 27.4 (22-28) mmol.L VBG O2 Sat (Calc) 100.0 H (40-65) % VBG Base Excess -0.4 L (0.0-2.0) mmol/L VBG Potassium 3.8 (3.6-5.2) mmol/L Hgb O2 Saturation (95.0-98.0) % Glucose 96 (75-110) mg/dl Lactate 0.5 L (0.7-2.1) mmol/L FiO2 21.0 % Sodium 137.0 (132-148) mmol/L Potassium (3.6-5.0) mmol/L Chloride 111.0 H (98-107) mmol/L Carbon Dioxide (21-33) mmol/L Anion Gap (10-20) BUN (7-21) mg/dL Creatinine (0.8-1.5) mg/dl Est GFR ( Amer) Est GFR (Non-Af Amer) Random Glucose (70-110) mg/dL Calcium (8.4-10.5) mg/dL Magnesium (1.7-2.2) mg/dL Total Bilirubin (0.2-1.3) mg/dL AST (17-59) U/L ALT (7-56) U/L Alkaline Phosphatase (38-126) U/L Total Creatine Kinase (35-230) U/L Troponin I < 0.01 ng/mL Total Protein (5.8-8.3) g/dL Albumin (3.0-4.8) g/dL Globulin gm/dL Albumin/Globulin Ratio (1.1-1.8) Venous Blood Potassium 3.8 (3.6-5.2) mmol/L Urine Color (YELLOW) Urine Appearance (CLEAR) Urine pH (4.7-8.0) Ur Specific [place] (1.005-1.035) Urine Protein (<30 mg/dL) mg/dL Urine Glucose (UA) (NEGATIVE) mg/dL Urine Ketones (NEGATIVE) mg/dL Urine Blood (NEGATIVE) Urine Nitrate (NEGATIVE) Urine Bilirubin (NEGATIVE) Urine Urobilinogen (<1 E.U./dL) E.U./dL Ur Leukocyte Esterase (NEGATIVE) Clark/uL Urine RBC (0-2) /hpf Urine WBC (0-6) /hpf Ur Epithelial Cells (0-5) /hpf Amorphous Sediment Urine Bacteria (NEG) Salicylates 5 (2.0-20.0) mg/dL Urine Opiates Screen (NEGATIVE) Urine Methadone Screen (NEGATIVE) Acetaminophen < 10.0 L (10.0-20.0) ug/ml Ur Barbiturates Screen (NEGATIVE) Ur Phencyclidine Scrn (NEGATIVE) Ur Amphetamines Screen (NEGATIVE) U Benzodiazepines Scrn (NEGATIVE) U Oth Cocaine Metabols (NEGATIVE) U Cannabinoids Screen (NEGATIVE) Alcohol, Quantitative (0-10) mg/dL 01/21/18 01/21/18 01/21/18 Range/Units 18:39 18:39 18:39 WBC (4.5-11.0) 10^3/ul RBC (3.5-6.1) 10^6/uL Hgb (14.0-18.0) g/dL Hct (42.0-52.0) % MCV (80.0-105.0) fl MCH (25.0-35.0) pg MCHC (31.0-37.0) g/dl RDW (11.5-14.5) % Plt Count (120.0-450.0) 10^3/uL MPV (7.0-11.0) fl Gran % (50.0-68.0) % Lymph % (Auto) (22.0-35.0) % [place] % (Auto) (1.0-6.0) % Eos % (Auto) (1.5-5.0) % Baso % (Auto) (0.0-3.0) % Gran # (1.4-6.5) Lymph # (Auto) (1.2-3.4) [place] # (Auto) (0.1-0.6) Eos # (Auto) (0.0-0.7) Baso # (Auto) (0.0-2.0) K/mm3 pCO2 (35-45) mm/Hg pO2 (30-55) mm/Hg HCO3 (21-28) mmol/L ABG pH (7.35-7.45) ABG Total CO2 (22-28) mmol.L ABG O2 Saturation (95-98) % ABG O2 Content (15-23) ML/dl ABG Base Excess (-2.0-3.0) mmol/L ABG Hemoglobin (11.7-17.4) g/dL ABG Carboxyhemoglobin (0.5-1.5) % POC ABG HHb (Measured) (0-5) % ABG Methemoglobin (0.0-3.0) % ABG O2 Capacity (16-24) mL/dl VBG pH (7.32-7.43) VBG pCO2 (40-60) VBG HCO3 (21-28) mmol/l VBG Total CO2 (22-28) mmol.L VBG O2 Sat (Calc) (40-65) % VBG Base Excess (0.0-2.0) mmol/L VBG Potassium (3.6-5.2) mmol/L Hgb O2 Saturation (95.0-98.0) % Glucose (75-110) mg/dl Lactate (0.7-2.1) mmol/L FiO2 % Sodium (132-148) mmol/L Potassium (3.6-5.0) mmol/L Chloride (98-107) mmol/L Carbon Dioxide (21-33) mmol/L Anion Gap (10-20) BUN (7-21) mg/dL Creatinine (0.8-1.5) mg/dl Est GFR ( Amer) Est GFR (Non-Af Amer) Random Glucose (70-110) mg/dL Calcium (8.4-10.5) mg/dL Magnesium (1.7-2.2) mg/dL Total Bilirubin (0.2-1.3) mg/dL AST (17-59) U/L ALT (7-56) U/L Alkaline Phosphatase (38-126) U/L Total Creatine Kinase (35-230) U/L Troponin I ng/mL Total Protein (5.8-8.3) g/dL Albumin (3.0-4.8) g/dL Globulin gm/dL Albumin/Globulin Ratio (1.1-1.8) Venous Blood Potassium (3.6-5.2) mmol/L Urine Color Yellow (YELLOW) Urine Appearance Clear (CLEAR) Urine pH 6.5 (4.7-8.0) Ur Specific [place] 1.025 (1.005-1.035) Urine Protein 30 H (<30 mg/dL) mg/dL Urine Glucose (UA) Negative (NEGATIVE) mg/dL Urine Ketones Trace H (NEGATIVE) mg/dL Urine Blood Negative (NEGATIVE) Urine Nitrate Negative (NEGATIVE) Urine Bilirubin Small H (NEGATIVE) Urine Urobilinogen 4.0 H (<1 E.U./dL) E.U./dL Ur Leukocyte Esterase Negative (NEGATIVE) Clark/uL Urine RBC Negative (0-2) /hpf Urine WBC 1 - 3 (0-6) /hpf Ur Epithelial Cells 1 - 3 (0-5) /hpf Amorphous Sediment Moderate Urine Bacteria Few (NEG) Salicylates 10 (2.0-20.0) mg/dL Urine Opiates Screen Negative (NEGATIVE) Urine Methadone Screen Negative (NEGATIVE) Acetaminophen < 10.0 L (10.0-20.0) ug/ml Ur Barbiturates Screen Negative (NEGATIVE) Ur Phencyclidine Scrn Negative (NEGATIVE) Ur Amphetamines Screen No result (NEGATIVE) U Benzodiazepines Scrn Negative (NEGATIVE) U Oth Cocaine Metabols Negative (NEGATIVE) U Cannabinoids Screen Positive H (NEGATIVE) Alcohol, Quantitative (0-10) mg/dL 01/21/18 01/21/18 01/21/18 Range/Units 18:22 18:22 18:22 WBC 19.5 H D (4.5-11.0) 10^3/ul RBC 5.07 (3.5-6.1) 10^6/uL Hgb 15.7 D (14.0-18.0) g/dL Hct 46.3 (42.0-52.0) % MCV 91.3 (80.0-105.0) fl MCH 31.0 (25.0-35.0) pg MCHC 33.9 (31.0-37.0) g/dl RDW 13.4 (11.5-14.5) % Plt Count 288 (120.0-450.0) 10^3/uL MPV 10.0 (7.0-11.0) fl Gran % 26.7 L (50.0-68.0) % Lymph % (Auto) 58.3 H (22.0-35.0) % [place] % (Auto) 7.5 H (1.0-6.0) % Eos % (Auto) 7.2 H (1.5-5.0) % Baso % (Auto) 0.3 (0.0-3.0) % Gran # 5.19 (1.4-6.5) Lymph # (Auto) 11.4 H (1.2-3.4) [place] # (Auto) 1.5 H (0.1-0.6) Eos # (Auto) 1.4 H (0.0-0.7) Baso # (Auto) 0.06 (0.0-2.0) K/mm3 pCO2 (35-45) mm/Hg pO2 (30-55) mm/Hg HCO3 (21-28) mmol/L ABG pH (7.35-7.45) ABG Total CO2 (22-28) mmol.L ABG O2 Saturation (95-98) % ABG O2 Content (15-23) ML/dl ABG Base Excess (-2.0-3.0) mmol/L ABG Hemoglobin (11.7-17.4) g/dL ABG Carboxyhemoglobin (0.5-1.5) % POC ABG HHb (Measured) (0-5) % ABG Methemoglobin (0.0-3.0) % ABG O2 Capacity (16-24) mL/dl VBG pH (7.32-7.43) VBG pCO2 (40-60) VBG HCO3 (21-28) mmol/l VBG Total CO2 (22-28) mmol.L VBG O2 Sat (Calc) (40-65) % VBG Base Excess (0.0-2.0) mmol/L VBG Potassium (3.6-5.2) mmol/L Hgb O2 Saturation (95.0-98.0) % Glucose (75-110) mg/dl Lactate (0.7-2.1) mmol/L FiO2 % Sodium 144 (132-148) mmol/L Potassium 5.2 H (3.6-5.0) mmol/L Chloride 103 (98-107) mmol/L Carbon Dioxide 18 L (21-33) mmol/L Anion Gap 28 H (10-20) BUN 14 (7-21) mg/dL Creatinine 1.0 (0.8-1.5) mg/dl Est GFR ( Amer) > 60 Est GFR (Non-Af Amer) > 60 Random Glucose 139 H (70-110) mg/dL Calcium 10.2 (8.4-10.5) mg/dL Magnesium 2.3 H (1.7-2.2) mg/dL Total Bilirubin 1.1 (0.2-1.3) mg/dL AST 39 (17-59) U/L ALT 38 (7-56) U/L Alkaline Phosphatase 95 (38-126) U/L Total Creatine Kinase 165 (35-230) U/L Troponin I ng/mL Total Protein 8.0 (5.8-8.3) g/dL Albumin 4.8 (3.0-4.8) g/dL Globulin 3.2 gm/dL Albumin/Globulin Ratio 1.5 (1.1-1.8) Venous Blood Potassium (3.6-5.2) mmol/L Urine Color (YELLOW) Urine Appearance (CLEAR) Urine pH (4.7-8.0) Ur Specific [place] (1.005-1.035) Urine Protein (<30 mg/dL) mg/dL Urine Glucose (UA) (NEGATIVE) mg/dL Urine Ketones (NEGATIVE) mg/dL Urine Blood (NEGATIVE) Urine Nitrate (NEGATIVE) Urine Bilirubin (NEGATIVE) Urine Urobilinogen (<1 E.U./dL) E.U./dL Ur Leukocyte Esterase (NEGATIVE) Clark/uL Urine RBC (0-2) /hpf Urine WBC (0-6) /hpf Ur Epithelial Cells (0-5) /hpf Amorphous Sediment Urine Bacteria (NEG) Salicylates (2.0-20.0) mg/dL Urine Opiates Screen (NEGATIVE) Urine Methadone Screen (NEGATIVE) Acetaminophen (10.0-20.0) ug/ml Ur Barbiturates Screen (NEGATIVE) Ur Phencyclidine Scrn (NEGATIVE) Ur Amphetamines Screen (NEGATIVE) U Benzodiazepines Scrn (NEGATIVE) U Oth Cocaine Metabols (NEGATIVE) U Cannabinoids Screen (NEGATIVE) Alcohol, Quantitative < 10 (0-10) mg/dL Laboratory Results - last 24 hr 01/21/18 01/21/18 01/21/18 18:22 18:22 18:22 WBC 19.5 H D RBC 5.07 Hgb 15.7 D Hct 46.3 MCV 91.3 MCH 31.0 MCHC 33.9 RDW 13.4 Plt Count 288 MPV 10.0 Gran % 26.7 L Lymph % (Auto) 58.3 H [place] % (Auto) 7.5 H Eos % (Auto) 7.2 H Baso % (Auto) 0.3 Gran # 5.19 Lymph # (Auto) 11.4 H [place] # (Auto) 1.5 H Eos # (Auto) 1.4 H Baso # (Auto) 0.06 pCO2 pO2 HCO3 ABG pH ABG Total CO2 ABG O2 Saturation ABG O2 Content ABG Base Excess ABG Hemoglobin ABG Carboxyhemoglobin POC ABG HHb (Measured) ABG Methemoglobin ABG O2 Capacity VBG pH VBG pCO2 VBG HCO3 VBG Total CO2 VBG O2 Sat (Calc) VBG Base Excess VBG Potassium Hgb O2 Saturation Glucose Lactate FiO2 Sodium 144 Potassium 5.2 H Chloride 103 Carbon Dioxide 18 L Anion Gap 28 H BUN 14 Creatinine 1.0 Est GFR ( Amer) > 60 Est GFR (Non-Af Amer) > 60 Random Glucose 139 H Calcium 10.2 Magnesium 2.3 H Total Bilirubin 1.1 AST 39 ALT 38 Alkaline Phosphatase 95 Total Creatine Kinase 165 Troponin I Total Protein 8.0 Albumin 4.8 Globulin 3.2 Albumin/Globulin Ratio 1.5 Venous Blood Potassium Urine Color Urine Appearance Urine pH Ur Specific [place] Urine Protein Urine Glucose (UA) Urine Ketones Urine Blood Urine Nitrate Urine Bilirubin Urine Urobilinogen Ur Leukocyte Esterase Urine RBC Urine WBC Ur Epithelial Cells Amorphous Sediment Urine Bacteria Salicylates Urine Opiates Screen Urine Methadone Screen Acetaminophen Ur Barbiturates Screen Ur Phencyclidine Scrn Ur Amphetamines Screen U Benzodiazepines Scrn U Oth Cocaine Metabols U Cannabinoids Screen Alcohol, Quantitative < 10 01/21/18 01/21/18 01/21/18 18:39 18:39 18:39 WBC RBC Hgb Hct MCV MCH MCHC RDW Plt Count MPV Gran % Lymph % (Auto) [place] % (Auto) Eos % (Auto) Baso % (Auto) Gran # Lymph # (Auto) [place] # (Auto) Eos # (Auto) Baso # (Auto) pCO2 pO2 HCO3 ABG pH ABG Total CO2 ABG O2 Saturation ABG O2 Content ABG Base Excess ABG Hemoglobin ABG Carboxyhemoglobin POC ABG HHb (Measured) ABG Methemoglobin ABG O2 Capacity VBG pH VBG pCO2 VBG HCO3 VBG Total CO2 VBG O2 Sat (Calc) VBG Base Excess VBG Potassium Hgb O2 Saturation Glucose Lactate FiO2 Sodium Potassium Chloride Carbon Dioxide Anion Gap BUN Creatinine Est GFR ( Amer) Est GFR (Non-Af Amer) Random Glucose Calcium Magnesium Total Bilirubin AST ALT Alkaline Phosphatase Total Creatine Kinase Troponin I Total Protein Albumin Globulin Albumin/Globulin Ratio Venous Blood Potassium Urine Color Yellow Urine Appearance Clear Urine pH 6.5 Ur Specific [place] 1.025 Urine Protein 30 H Urine Glucose (UA) Negative Urine Ketones Trace H Urine Blood Negative Urine Nitrate Negative Urine Bilirubin Small H Urine Urobilinogen 4.0 H Ur Leukocyte Esterase Negative Urine RBC Negative Urine WBC 1 - 3 Ur Epithelial Cells 1 - 3 Amorphous Sediment Moderate Urine Bacteria Few Salicylates 10 Urine Opiates Screen Negative Urine Methadone Screen Negative Acetaminophen < 10.0 L Ur Barbiturates Screen Negative Ur Phencyclidine Scrn Negative Ur Amphetamines Screen No result U Benzodiazepines Scrn Negative U Oth Cocaine Metabols Negative U Cannabinoids Screen Positive H Alcohol, Quantitative 01/21/18 01/21/18 01/21/18 21:12 21:29 22:53 WBC RBC Hgb Hct MCV MCH MCHC RDW Plt Count MPV Gran % Lymph % (Auto) [place] % (Auto) Eos % (Auto) Baso % (Auto) Gran # Lymph # (Auto) [place] # (Auto) Eos # (Auto) Baso # (Auto) pCO2 pO2 229 H HCO3 ABG pH ABG Total CO2 ABG O2 Saturation ABG O2 Content ABG Base Excess ABG Hemoglobin ABG Carboxyhemoglobin POC ABG HHb (Measured) ABG Methemoglobin ABG O2 Capacity VBG pH 7.34 VBG pCO2 48.0 VBG HCO3 25.9 VBG Total CO2 27.4 VBG O2 Sat (Calc) 100.0 H VBG Base Excess -0.4 L VBG Potassium 3.8 Hgb O2 Saturation Glucose 96 Lactate 0.5 L FiO2 21.0 Sodium 137.0 Potassium Chloride 111.0 H Carbon Dioxide Anion Gap BUN Creatinine Est GFR ( Amer) Est GFR (Non-Af Amer) Random Glucose Calcium Magnesium Total Bilirubin AST ALT Alkaline Phosphatase Total Creatine Kinase Troponin I < 0.01 Total Protein Albumin Globulin Albumin/Globulin Ratio Venous Blood Potassium 3.8 Urine Color Urine Appearance Urine pH Ur Specific [place] Urine Protein Urine Glucose (UA) Urine Ketones Urine Blood Urine Nitrate Urine Bilirubin Urine Urobilinogen Ur Leukocyte Esterase Urine RBC Urine WBC Ur Epithelial Cells Amorphous Sediment Urine Bacteria Salicylates 5 Urine Opiates Screen Urine Methadone Screen Acetaminophen < 10.0 L Ur Barbiturates Screen Ur Phencyclidine Scrn Ur Amphetamines Screen U Benzodiazepines Scrn U Oth Cocaine Metabols U Cannabinoids Screen Alcohol, Quantitative 01/22/18 01/22/18 01/22/18 05:50 05:50 10:00 WBC 7.5 D RBC 4.36 Hgb 13.3 L D Hct 39.2 L MCV 89.9 MCH 30.5 MCHC 33.9 RDW 13.1 Plt Count 175 MPV 9.2 Gran % 45.7 L Lymph % (Auto) 36.0 H [place] % (Auto) 9.6 H Eos % (Auto) 8.4 H Baso % (Auto) 0.3 Gran # 3.44 Lymph # (Auto) 2.7 [place] # (Auto) 0.7 H Eos # (Auto) 0.6 Baso # (Auto) 0.02 pCO2 39 pO2 100.0 HCO3 23.6 ABG pH 7.39 ABG Total CO2 24.8 ABG O2 Saturation 99.2 H ABG O2 Content 17.6 ABG Base Excess -1.2 ABG Hemoglobin 12.9 ABG Carboxyhemoglobin 1.8 H POC ABG HHb (Measured) 0.8 ABG Methemoglobin 0.8 ABG O2 Capacity 17.7 VBG pH VBG pCO2 VBG HCO3 VBG Total CO2 VBG O2 Sat (Calc) VBG Base Excess VBG Potassium Hgb O2 Saturation 96.6 Glucose Lactate FiO2 21.0 Sodium 136 Potassium 3.6 Chloride 107 Carbon Dioxide 24 Anion Gap 9 L BUN 9 Creatinine 0.6 L Est GFR ( Amer) > 60 Est GFR (Non-Af Amer) > 60 Random Glucose 86 Calcium 7.9 L Magnesium 1.9 Total Bilirubin 1.3 AST 52 ALT 43 Alkaline Phosphatase 64 Total Creatine Kinase Troponin I Total Protein 5.6 L Albumin 2.9 L Globulin 2.7 Albumin/Globulin Ratio 1.1 Venous Blood Potassium Urine Color Urine Appearance Urine pH Ur Specific [place] Urine Protein Urine Glucose (UA) Urine Ketones Urine Blood Urine Nitrate Urine Bilirubin Urine Urobilinogen Ur Leukocyte Esterase Urine RBC Urine WBC Ur Epithelial Cells Amorphous Sediment Urine Bacteria Salicylates Urine Opiates Screen Urine Methadone Screen Acetaminophen Ur Barbiturates Screen Ur Phencyclidine Scrn Ur Amphetamines Screen U Benzodiazepines Scrn U Oth Cocaine Metabols U Cannabinoids Screen Alcohol, Quantitative EKG/Cardiology Studies: Cardiology / EKG Studies 01/21/18 18:11 EKG [ELECTROCARDIOGRAM] Stat Comment: Reason For Exam: SUBSTANCE ABUSE 01/21/18 23:50 EKG [ELECTROCARDIOGRAM] Routine Comment: Reason For Exam: tachycardic 01/22/18 07:00 EKG [ELECTROCARDIOGRAM] Routine Comment: Reason For Exam: tachycardic Critical Care Progress Note - Nutrition Nutrition: Nutrition Category Date Time Status Heart Healthy Diet [DIET] Diets 01/22/18 Breakfast Active Assessment/Plan - Assessment and Plan (Free Text) Plan: Patient seen and examined on rounds with resident, agree with note with following additions/exceptions: Patient is 27yo male with Pmhx of polysubstance abuse, presented with palpitations, drug over dose with "speed" and heroin. Patient was initially hypotensive, but responded to IVF boluses. Patient currently AAOx2, NAD, answers questions appropriately, calm. Labs, imaging, chart reviewed. ABG wnl LFTs, Cr, CPK wnl EKG QTc wnl CXR clear Drug overdose Leukocytosis Recommend: - supp o2 as needed, duonebs PRN - follow up cultures, UCx, BCx, Check procal - cont with abx for now, until cultures negative, although doubt infectious etiology - IVF - resume regular diet - obtain psych eval - follow up with poison control - GI ppx - DVT ppx - stable, transfer to telemetry
--- NOTE | 2018-01-22 07:28 | CP.PCM.PN ---
Subjective - Date & Time of Evaluation Date of Evaluation: 01/22/18 Time of Evaluation: 09:00 - Subjective Subjective: PGY-1 Valeria Blevins D.O. Medicine progress note for Dr. Henderson's service: Patient was seen and examined this morning. Objective - Vital Signs/Intake and Output Vital Signs (last 24 hours): Temp Pulse Resp BP Pulse Ox 99 F 83 16 106/49 L 99 01/22/18 05:07 01/22/18 07:00 01/22/18 07:00 01/22/18 07:00 01/22/18 07:00 Intake and Output: 01/22/18 01/22/18 06:59 18:59 Intake Total 900 Output Total 2800 Balance -1900 - Medications Medications: Current Medications Sodium Chloride (Sodium Chloride 0.9%) 1,000 mls @ 150 mls/hr IV .Q6H40M MIAH Last Admin: 01/21/18 23:02 Dose: 150 mls/hr Vancomycin HCl (Vancomycin 1gm) 1 gm in 250 mls @ 167 mls/hr IVPB DAILY MIAH; Protocol Lorazepam (Ativan) 2 mg IVP Q6H PRN; Protocol PRN Reason: Agitation Last Admin: 01/22/18 01:48 Dose: 2 mg - Labs Labs: 01/22/18 05:50 01/22/18 05:50
--- NOTE | 2018-01-22 08:30 | CT ---
Date of service: 01/21/2018 PROCEDURE: CT HEAD WITHOUT CONTRAST. HISTORY: altered mentation COMPARISON: Noncontrast head CT performed 09/05/17 TECHNIQUE: Axial computed tomography images were obtained through the head/brain without intravenous contrast. Radiation dose: Total exam DLP = 1050.01 mGy-cm. This CT exam was performed using one or more of the following dose reduction techniques: Automated exposure control, adjustment of the mA and/or kV according to patient size, and/or use of iterative reconstruction technique. FINDINGS: Streak artifact obscures evaluation of the skull base. HEMORRHAGE: No intracranial hemorrhage. BRAIN: No mass effect or edema. The landon-white matter differentiation appears intact. Please note that MRI with diffusion imaging is more sensitive in the detection of acute ischemic event. VENTRICLES: No hydrocephalus. CALVARIUM: Unremarkable. PARANASAL SINUSES: Mild mucosal thickening involving bilateral ethmoid air cells. MASTOID AIR CELLS: Unremarkable as visualized. No inflammatory changes. OTHER FINDINGS: None. IMPRESSION: No acute intracranial pathology identified. Preliminary impression was provided by [employer].
--- NOTE | 2018-01-22 09:24 | CARD ---
APPROVED REPORT Date of service: 01/21/2018 EKG Measurement Heart [id number] <Conclusion> SVT, probably Sinus tachycardia at 153 BPM
[2018-01-22] MEDS ORDERED: Vancomycin 1gm in NS 250ml 1 GM/250 ML BAG IVPB SCH (10:00)
[2018-01-22 10:08] LABS: ARTERIAL BLOOD GAS HCO3 23.6 mmol/L (21-28); ARTERIAL BLOOD GAS HEMOGLOBIN 12.9 g/dL (11.7-17.4); ARTERIAL BLOOD GAS O2 CAPACITY 17.7 mL/dl (16-24); ARTERIAL BLOOD GAS O2 CONTENT 17.6 ML/dl (15-23); ARTERIAL BLOOD GAS O2 SAT 99.2 % (95-98); ARTERIAL BLOOD GAS PCO2 39 mm/Hg (35-45); ARTERIAL BLOOD GAS PH 7.39 (7.35-7.45); ARTERIAL BLOOD GAS TCO2 24.8 mmol.L (22-28)
[2018-01-22] MEDS ORDERED: Enoxaparin 40 mg Syringe SC SCH (10:30)
[2018-01-22] MEDS ORDERED: Piperacillin/Tazobact 3.375 gm 100 ML IVPB SCH ×2 (12:00)
--- NOTE | 2018-01-22 14:01 | CARD ---
APPROVED REPORT Date of service: 01/22/2018 EKG Measurement Heart [id number] <Conclusion> Normal sinus rhythm Normal ECG
--- NOTE | 2018-01-22 14:31 | CP.PCM.PCO ---
Physician Communication Note - Physician Communication Note Physician Communication Note: Pt. Status Update Addendum Addendum: 01/22/18 14:19 S: Pt. AAO3; Sittin gup in bed, talking, no acute complaints at this time. Requesting something to eat O: Afebrile HR 80, BP 126/56, RR 13, SpO2 99% RA; Exam: no acute distress, comfortable, HR S1S2 RRR, CTABL, No abd tenderness, Peripheral pulses 2+ BL LE, Neurologically intact no FND A: 27M s/p GHB OD, s/p 10mg Haldol, s/p 6mg ativan P: Patient stable at this time, Discussed w/ poison control, managed appropriately; Poison control has signed off. No further ICU intervention/ management required at this time. Patient is safe for further management/ monitoring on medicine/surgical floor. Discussed w/ ICU attending physician Dr. Teresa Henderson DO PGY1 Internal Medicine Supervisor [employer]
[2018-01-22 17:36] VITALS: BP 106/63; PULSE 103; RESP 17; O2SAT 99
[2018-01-22 17:48] VITALS: TEMP 98.1
--- NOTE | 2018-01-22 19:10 | CP.PCM.DIS ---
Provider - Provider Date of Admission: 01/21/18 22:10 Attending physician: Elizabeth Henderson DO Primary care physician: none Consults: ICU cardiology ID Time Spent in preparation of Discharge (in minutes): 35 Diagnosis - Discharge Diagnosis (1) Drug overdose Status: Acute Priority: High Hospital Course - Lab Results Lab Results: Most Recent Lab Values WBC 7.5 10^3/ul (4.5-11.0) D 01/22/18 05:50 RBC 4.36 10^6/uL (3.5-6.1) 01/22/18 05:50 Hgb 13.3 g/dL (14.0-18.0) L D 01/22/18 05:50 Hct 39.2 % (42.0-52.0) L 01/22/18 05:50 MCV 89.9 fl (80.0-105.0) 01/22/18 05:50 MCH 30.5 pg (25.0-35.0) 01/22/18 05:50 MCHC 33.9 g/dl (31.0-37.0) 01/22/18 05:50 RDW 13.1 % (11.5-14.5) 01/22/18 05:50 Plt Count 175 10^3/uL (120.0-450.0) 01/22/18 05:50 MPV 9.2 fl (7.0-11.0) 01/22/18 05:50 Gran % 45.7 % (50.0-68.0) L 01/22/18 05:50 Lymph % (Auto) 36.0 % (22.0-35.0) H 01/22/18 05:50 [place] % (Auto) 9.6 % (1.0-6.0) H 01/22/18 05:50 Eos % (Auto) 8.4 % (1.5-5.0) H 01/22/18 05:50 Baso % (Auto) 0.3 % (0.0-3.0) 01/22/18 05:50 Gran # 3.44 (1.4-6.5) 01/22/18 05:50 Lymph # (Auto) 2.7 (1.2-3.4) 01/22/18 05:50 [place] # (Auto) 0.7 (0.1-0.6) H 01/22/18 05:50 Eos # (Auto) 0.6 (0.0-0.7) 01/22/18 05:50 Baso # (Auto) 0.02 K/mm3 (0.0-2.0) 01/22/18 05:50 pCO2 39 mm/Hg (35-45) 01/22/18 10:00 pO2 100.0 mm/Hg (80-100) 01/22/18 10:00 HCO3 23.6 mmol/L (21-28) 01/22/18 10:00 ABG pH 7.39 (7.35-7.45) 01/22/18 10:00 ABG Total CO2 24.8 mmol.L (22-28) 01/22/18 10:00 ABG O2 Saturation 99.2 % (95-98) H 01/22/18 10:00 ABG O2 Content 17.6 ML/dl (15-23) 01/22/18 10:00 ABG Base Excess -1.2 mmol/L (-2.0-3.0) 01/22/18 10:00 ABG Hemoglobin 12.9 g/dL (11.7-17.4) 01/22/18 10:00 ABG Carboxyhemoglobin 1.8 % (0.5-1.5) H 01/22/18 10:00 POC ABG HHb (Measured) 0.8 % (0-5) 01/22/18 10:00 ABG Methemoglobin 0.8 % (0.0-3.0) 01/22/18 10:00 ABG O2 Capacity 17.7 mL/dl (16-24) 01/22/18 10:00 VBG pH 7.34 (7.32-7.43) 01/21/18 21:29 VBG pCO2 48.0 (40-60) 01/21/18 21:29 VBG HCO3 25.9 mmol/l (21-28) 01/21/18 21:29 VBG Total CO2 27.4 mmol.L (22-28) 01/21/18 21:29 VBG O2 Sat (Calc) 100.0 % (40-65) H 01/21/18 21:29 VBG Base Excess -0.4 mmol/L (0.0-2.0) L 01/21/18 21:29 VBG Potassium 3.8 mmol/L (3.6-5.2) 01/21/18 21:29 Hgb O2 Saturation 96.6 % (95.0-98.0) 01/22/18 10:00 Sodium 137.0 mmol/L (132-148) 01/21/18 21:29 Chloride 111.0 mmol/L (98-107) H 01/21/18 21:29 Glucose 96 mg/dl (75-110) 01/21/18 21:29 Lactate 0.5 mmol/L (0.7-2.1) L 01/21/18 21:29 FiO2 21.0 % 01/22/18 10:00 Sodium 136 mmol/L (132-148) 01/22/18 05:50 Potassium 3.6 mmol/L (3.6-5.0) 01/22/18 05:50 Chloride 107 mmol/L (98-107) 01/22/18 05:50 Carbon Dioxide 24 mmol/L (21-33) 01/22/18 05:50 Anion Gap 9 (10-20) L 01/22/18 05:50 BUN 9 mg/dL (7-21) 01/22/18 05:50 Creatinine 0.6 mg/dl (0.8-1.5) L 01/22/18 05:50 Est GFR ( Amer) > 60 01/22/18 05:50 Est GFR (Non-Af Amer) > 60 01/22/18 05:50 Random Glucose 86 mg/dL (70-110) 01/22/18 05:50 Calcium 7.9 mg/dL (8.4-10.5) L 01/22/18 05:50 Magnesium 1.9 mg/dL (1.7-2.2) 01/22/18 05:50 Total Bilirubin 1.3 mg/dL (0.2-1.3) 01/22/18 05:50 AST 52 U/L (17-59) 01/22/18 05:50 ALT 43 U/L (7-56) 01/22/18 05:50 Alkaline Phosphatase 64 U/L (38-126) 01/22/18 05:50 Total Creatine Kinase 165 U/L (35-230) 01/21/18 18:22 Troponin I < 0.01 ng/mL 01/21/18 22:53 Total Protein 5.6 g/dL (5.8-8.3) L 01/22/18 05:50 Albumin 2.9 g/dL (3.0-4.8) L 01/22/18 05:50 Globulin 2.7 gm/dL 01/22/18 05:50 Albumin/Globulin Ratio 1.1 (1.1-1.8) 01/22/18 05:50 Procalcitonin < 0.05 NG/ML (0.19-0.49) L 01/21/18 22:53 Venous Blood Potassium 3.8 mmol/L (3.6-5.2) 01/21/18 21:29 Urine Color Yellow (YELLOW) 01/21/18 18:39 Urine Appearance Clear (CLEAR) 01/21/18 18:39 Urine pH 6.5 (4.7-8.0) 01/21/18 18:39 Ur Specific [place] 1.025 (1.005-1.035) 01/21/18 18:39 Urine Protein 30 mg/dL (<30 mg/dL) H 01/21/18 18:39 Urine Glucose (UA) Negative mg/dL (NEGATIVE) 01/21/18 18:39 Urine Ketones Trace mg/dL (NEGATIVE) H 01/21/18 18:39 Urine Blood Negative (NEGATIVE) 01/21/18 18:39 Urine Nitrate Negative (NEGATIVE) 01/21/18 18:39 Urine Bilirubin Small (NEGATIVE) H 01/21/18 18:39 Urine Urobilinogen 4.0 E.U./dL (<1 E.U./dL) H 01/21/18 18:39 Ur Leukocyte Esterase Negative [place]/uL (NEGATIVE) 01/21/18 18:39 Urine RBC Negative /hpf (0-2) 01/21/18 18:39 Urine WBC 1 - 3 /hpf (0-6) 01/21/18 18:39 Ur Epithelial Cells 1 - 3 /hpf (0-5) 01/21/18 18:39 Amorphous Sediment Moderate 01/21/18 18:39 Urine Bacteria Few (NEG) 01/21/18 18:39 Salicylates 5 mg/dL (2.0-20.0) 01/21/18 21:12 Urine Opiates Screen Negative (NEGATIVE) 01/21/18 18:39 Urine Methadone Screen Negative (NEGATIVE) 01/21/18 18:39 Acetaminophen < 10.0 ug/ml (10.0-20.0) L 01/21/18 21:12 Ur Barbiturates Screen Negative (NEGATIVE) 01/21/18 18:39 Ur Phencyclidine Scrn Negative (NEGATIVE) 01/21/18 18:39 Ur Amphetamines Screen No result (NEGATIVE) 01/21/18 18:39 U Benzodiazepines Scrn Negative (NEGATIVE) 01/21/18 18:39 U Oth Cocaine Metabols Negative (NEGATIVE) 01/21/18 18:39 U Cannabinoids Screen Positive (NEGATIVE) H 01/21/18 18:39 Alcohol, Quantitative < 10 mg/dL (0-10) 01/21/18 18:22 - Hospital Course Hospital Course: 27 year old male with a medical history of methamphetamine use who presented with palpitations, chest discomfort, altered mentation (noted in ED and by EMS) in the setting of methamphetamine use (though UDS did not show this) and was given 4 L of NS via bolus and Haldol and Ativan. Patient was also noted to be persistently hypotensive and with a leukocytosis and hence admitted to the ICU for closer monitoring Upon admission, labs revealed leukocytosis, possibly reactive. In the ICU, patient was empiracally started on broad sprectrum antibiotics with Vancomycin and Zosyn. Serum procalcitonin was less than 0.05. Patient was hypotensive and subsequently given 150ml/hr of normal saline. Hauser was placed due to urinary retention. EKG showed sinus tachycardia. Repeat EKG showed normal sinus rhythm. Troponin I was ordered and was 5.6. Ativan 2mg q6h prn for agitation.Head CT showed no intracranial pathology and chest x-ray showed no active pathology. On exam this morning, patient was lethargic but arousable to sternal rub. Pupils were round and reactive to light. S1 and S2 heart sounds were present and heart was normal rate and rhythm. Lungs were clear to auscultation bilaterally with normal breathing pattern. Abdomen was soft and nontender with normal bowel sounds. Lower extremities were nontender with 2+ dorsalis pedis and posterior tibialis pulses. Patient left against medical advice. Patient was alert and oriented x3. Patient admits to using gamma-hydroxybutryate yesterday. Patient was encouraged to stop using drugs. Benefits of continued admission and risks of leaving were thoroughly explained to the patient who acknowledged understanding. Discharge Exam - Head Exam Head Exam: ATRAUMATIC, NORMOCEPHALIC - Eye Exam Eye Exam: EOMI, Normal appearance, PERRL - ENT Exam ENT Exam: Mucous Membranes Moist, Normal Exam - Neck Exam Neck exam: Normal Inspection - Respiratory Exam Respiratory Exam: Clear to PA & Lateral, NORMAL BREATHING PATTERN, UNREMARKABLE - Cardiovascular Exam Cardiovascular Exam: REGULAR RHYTHM, +S1, +S2 - GI/Abdominal Exam GI & Abdominal Exam: Normal Bowel Sounds, Soft, Unremarkable - Rectal Exam Rectal Exam: Deferred - Extremities Exam Extremities exam: normal inspection, pedal pulses present - Back Exam Back exam: NORMAL INSPECTION - Neurological Exam Neurological exam: Alert, CN II-XII Intact, Normal Gait, Oriented x3 - Psychiatric Exam Psychiatric exam: Normal Affect, Normal Mood - Skin Skin Exam: Dry, Intact, Normal Color, Warm Discharge Plan - Follow Up Plan Condition: STABLE Disposition: AGAINST MEDICAL ADVICE
--- NOTE | 2018-01-22 19:35 | CP.PCM.CON ---
History of Present Illness - History of Present Illness History of Present Illness: Infectious Disease Consultation: January 22, 2018 27 yo male with history of methamphetamine/polysubstance abuse and cellulitis who was brought in by EMS for palpitations and chest discomfort in the setting of methamphetamine use. In the ED patient was noted to be agitated and given a 20 mg IM of Haldol and 2 mg of Ativan. Poison control was contacted and recommended treatment with benzodiazepines and repeat EKG in 4 hours. ID called for leukocytosis up to 19 and antibiotic management. The patient had AMS on initial admission. The patient is agitated and wants to leave the hospital at this time. He wants to leave AMA. PMHx: Polysubstance abuse PSHx: tonsillectomy Allergies: NKDA Social Hx: methamphetamine use Active Medications Enoxaparin Sodium (Lovenox) 40 mg SC DAILY MIAH; Protocol Last Admin: 01/22/18 11:37 Dose: 40 mg Sodium Chloride (Sodium Chloride 0.9%) 1,000 mls @ 150 mls/hr IV .Q6H40M MIAH Last Admin: 01/21/18 23:02 Dose: 150 mls/hr Vancomycin HCl (Vancomycin 1gm) 1 gm in 250 mls @ 167 mls/hr IVPB DAILY [facility]; Protocol Last Admin: 01/22/18 11:35 Dose: 167 mls/hr Piperacillin Sod/Tazobactam Sod (Zosyn 3.375 In Ns 100ml) 100 mls @ 200 mls/hr IVPB Q6 MIAH; Protocol Last Admin: 01/22/18 11:37 Dose: 200 mls/hr Pantoprazole Sodium (Protonix Inj) 40 mg IVP DAILY [facility] Last Admin: 01/22/18 11:38 Dose: 40 mg Family Hx: none given ROS: Unable to obtain from the patient. Past Patient History - Infectious Disease Hx of Infectious Diseases: None - Past Social History Smoking Status: Unknown If Ever Smoked - MUSCULOSKELETAL/RHEUMATOLOGICAL Hx Falls: No - PSYCHIATRIC Hx Anxiety: Yes Hx Depression: Yes - SURGICAL HISTORY Hx Surgeries: Yes - ANESTHESIA Hx Anesthesia: Yes Hx Anesthesia Reactions: No Hx Malignant Hyperthermia: No Meds Allergies/Adverse Reactions: Allergies Allergy/AdvReac Type Severity Reaction Status Date / Time No Known Allergies Allergy Verified 01/21/18 18:43 - Medications Medications: Current Medications Enoxaparin Sodium (Lovenox) 40 mg SC DAILY [facility]IA[facility]; Protocol Last Admin: 01/22/18 11:37 Dose: 40 mg Sodium Chloride (Sodium Chloride 0.9%) 1,000 mls @ 150 mls/hr IV .Q6H40M [facility]IA[facility] Last Admin: 01/21/18 23:02 Dose: 150 mls/hr Vancomycin HCl (Vancomycin 1gm) 1 gm in 250 mls @ 167 mls/hr IVPB DAILY [facility]; Protocol Last Admin: 01/22/18 11:35 Dose: 167 mls/hr Piperacillin Sod/Tazobactam Sod (Zosyn 3.375 In Ns 100ml) 100 mls @ 200 mls/hr IVPB Q6 [facility]IA[facility]; Protocol Last Admin: 01/22/18 11:37 Dose: 200 mls/hr Pantoprazole Sodium (Protonix Inj) 40 mg IVP DAILY [facility] Last Admin: 01/22/18 11:38 Dose: 40 mg Physical Exam - Constitutional Appears: Non-toxic, No Acute Distress, Chronically Ill - Head Exam Head Exam: ATRAUMATIC, NORMOCEPHALIC - Eye Exam Eye Exam: EOMI, PERRL Pupil Exam: NORMAL ACCOMODATION, PERRL - ENT Exam ENT Exam: Mucous Membranes Moist, Normal External Ear Exam, TM's Normal Bilaterally - Neck Exam Neck exam: Positive for: Full Rom, Normal Inspection - Respiratory Exam Respiratory Exam: Clear to Auscultation Bilateral, NORMAL BREATHING PATTERN. absent: Rales, Rhonchi, Wheezes - Cardiovascular Exam Cardiovascular Exam: REGULAR RHYTHM, RRR, +S1, +S2 - GI/Abdominal Exam GI & Abdominal Exam: Normal Bowel Sounds, Soft. absent: Distended, Tenderness - Extremities Exam Extremities exam: Positive for: full ROM, normal inspection - Neurological Exam Neurological exam: Alert, CN II-XII Intact, Oriented x3 - Psychiatric Exam Psychiatric exam: Normal Affect, Normal Mood - Skin Skin Exam: Intact, Normal Color Results - Vital Signs Recent Vital Signs: Last Vital Signs Temp 98.1 F 01/22/18 17:30 Pulse 103 H 01/22/18 17:04 Resp 17 01/22/18 17:04 BP 106/63 01/22/18 17:00 Pulse Ox 99 01/22/18 16:00 - Labs Result Diagrams: 01/22/18 05:50 09/27/18 05:50 Labs: Laboratory Results - last 24 hr 01/21/18 01/21/18 01/21/18 18:39 18:39 21:12 WBC RBC Hgb Hct MCV MCH MCHC RDW Plt Count MPV Gran % Lymph % (Auto) [place] % (Auto) Eos % (Auto) Baso % (Auto) Gran # Lymph # (Auto) [place] # (Auto) Eos # (Auto) Baso # (Auto) pCO2 pO2 HCO3 ABG pH ABG Total CO2 ABG O2 Saturation ABG O2 Content ABG Base Excess ABG Hemoglobin ABG Carboxyhemoglobin POC ABG HHb (Measured) ABG Methemoglobin ABG O2 Capacity VBG pH VBG pCO2 VBG HCO3 VBG Total CO2 VBG O2 Sat (Calc) VBG Base Excess VBG Potassium Hgb O2 Saturation Sodium Chloride Glucose Lactate FiO2 Potassium Carbon Dioxide Anion Gap BUN Creatinine Est GFR ( Amer) Est GFR (Non-Af Amer) Random Glucose Calcium Magnesium Total Bilirubin AST ALT Alkaline Phosphatase Troponin I Total Protein Albumin Globulin Albumin/Globulin Ratio Procalcitonin Venous Blood Potassium Urine RBC Negative Urine WBC 1 - 3 Ur Epithelial Cells 1 - 3 Amorphous Sediment Moderate Urine Bacteria Few Salicylates 5 Urine Opiates Screen Negative Acetaminophen < 10.0 L Ur Barbiturates Screen Negative Ur Phencyclidine Scrn Negative Ur Amphetamines Screen No result U Oth Cocaine Metabols Negative U Cannabinoids Screen Positive H 01/21/18 01/21/18 01/21/18 21:29 22:53 22:53 WBC RBC Hgb Hct MCV MCH MCHC RDW Plt Count MPV Gran % Lymph % (Auto) [place] % (Auto) Eos % (Auto) Baso % (Auto) Gran # Lymph # (Auto) [place] # (Auto) Eos # (Auto) Baso # (Auto) pCO2 pO2 229 H HCO3 ABG pH ABG Total CO2 ABG O2 Saturation ABG O2 Content ABG Base Excess ABG Hemoglobin ABG Carboxyhemoglobin POC ABG HHb (Measured) ABG Methemoglobin ABG O2 Capacity VBG pH 7.34 VBG pCO2 48.0 VBG HCO3 25.9 VBG Total CO2 27.4 VBG O2 Sat (Calc) 100.0 H VBG Base Excess -0.4 L VBG Potassium 3.8 Hgb O2 Saturation Sodium 137.0 Chloride 111.0 H Glucose 96 Lactate 0.5 L FiO2 21.0 Potassium Carbon Dioxide Anion Gap BUN Creatinine Est GFR ( Amer) Est GFR (Non-Af Amer) Random Glucose Calcium Magnesium Total Bilirubin AST ALT Alkaline Phosphatase Troponin I < 0.01 Total Protein Albumin Globulin Albumin/Globulin Ratio Procalcitonin < 0.05 L Venous Blood Potassium 3.8 Urine RBC Urine WBC Ur Epithelial Cells Amorphous Sediment Urine Bacteria Salicylates Urine Opiates Screen Acetaminophen Ur Barbiturates Screen Ur Phencyclidine Scrn Ur Amphetamines Screen U Oth Cocaine Metabols U Cannabinoids Screen 01/22/18 01/22/18 01/22/18 05:50 05:50 10:00 WBC 7.5 D RBC 4.36 Hgb 13.3 L D Hct 39.2 L MCV 89.9 MCH 30.5 MCHC 33.9 RDW 13.1 Plt Count 175 MPV 9.2 Gran % 45.7 L Lymph % (Auto) 36.0 H [place] % (Auto) 9.6 H Eos % (Auto) 8.4 H Baso % (Auto) 0.3 Gran # 3.44 Lymph # (Auto) 2.7 [place] # (Auto) 0.7 H Eos # (Auto) 0.6 Baso # (Auto) 0.02 pCO2 39 pO2 100.0 HCO3 23.6 ABG pH 7.39 ABG Total CO2 24.8 ABG O2 Saturation 99.2 H ABG O2 Content 17.6 ABG Base Excess -1.2 ABG Hemoglobin 12.9 ABG Carboxyhemoglobin 1.8 H POC ABG HHb (Measured) 0.8 ABG Methemoglobin 0.8 ABG O2 Capacity 17.7 VBG pH VBG pCO2 VBG HCO3 VBG Total CO2 VBG O2 Sat (Calc) VBG Base Excess VBG Potassium Hgb O2 Saturation 96.6 Sodium 136 Chloride 107 Glucose Lactate FiO2 21.0 Potassium 3.6 Carbon Dioxide 24 Anion Gap 9 L BUN 9 Creatinine 0.6 L Est GFR ( Amer) > 60 Est GFR (Non-Af Amer) > 60 Random Glucose 86 Calcium 7.9 L Magnesium 1.9 Total Bilirubin 1.3 AST 52 ALT 43 Alkaline Phosphatase 64 Troponin I Total Protein 5.6 L Albumin 2.9 L Globulin 2.7 Albumin/Globulin Ratio 1.1 Procalcitonin Venous Blood Potassium Urine RBC Urine WBC Ur Epithelial Cells Amorphous Sediment Urine Bacteria Salicylates Urine Opiates Screen Acetaminophen Ur Barbiturates Screen Ur Phencyclidine Scrn Ur Amphetamines Screen U Oth Cocaine Metabols U Cannabinoids Screen Assessment & Plan - Assessment and Plan (Free Text) Assessment: 27 yo male with history of polysubstance abuse especially with methamphetamines with AMS and tachycardia. The patient is awake and alert now. On Zosyn and Vancomycin IV. Leukocytosis has normalized today. No signs of tachycardia or respiratory distress today. Supportive care. On IV Antibiotics. Thank you for allowing me to participate in the care of the patient, we will follow with you.
--- NOTE | 2018-01-23 08:52 | CON ---
DATE: 01/22/2018 HISTORY OF PRESENT ILLNESS: The patient is a 27-year-old white male with history of substance abuse, was brought in because of agitation. The patient was also noted to be tachycardic with a heart rate of 144 beats per minute. The patient's drug screen tested positive for cannabinoids. No results for amphetamines were obtained, however, the patient is tested for amphetamines in the urine in previous admission. The patient did receive Ativan and lorazepam and at the time of my evaluation, he was sleepy, was difficult to awake, but was oriented and denied having chest pain. There was no reported ventricular tachycardia. However, the patient was noted to be hypotensive and required multiple fluid challenges. 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 PAST SURGICAL HISTORY: Tonsillectomy. MEDICATIONS: Lovenox 40 mg subcutaneously daily, Protonix 40 mg intravenously daily, normal saline 150 mL an hour, vancomycin 1 g intravenously daily, Zosyn 3.375 g intravenously every 6 hours. The patient did receive Haldol and Ativan. PHYSICAL EXAMINATION: GENERAL: The patient is a young middle-aged male, who is sleepy, but arousable and oriented to place and does not appear to be in respiratory distress. VITAL SIGNS: Blood pressure 119/52, heart rate 89, respirations 15, temperature 99. HEENT: Normocephalic. CHEST: Clear. HEART: S1, S2 regular. EXTREMITIES: No edema. LABORATORY DATA: Today's SMA-7, sodium 136, potassium 3.6, chloride 107, CO2 of 24, glucose 86, BUN 9, creatinine 0.6. CBC: WBC 7.5. Yesterday's white count was 19.5, hemoglobin and hematocrit 15.3 and 39.2, white count 175,000. First EKG on admission revealed sinus tachycardia at rate 153. Subsequent EKG revealed normal sinus rhythm. Head CT scan without contrast, no acute findings. Chest x-ray, no active disease. ASSESSMENT: 1. Status post cannabinoid abuse. 2. Hypotension and physiologic sinus tachycardia, improved with hydration. 3. History of amphetamine abuse in the past. RECOMMENDATIONS: Continue current IV hydration with normal saline at 150 mL an hour, monitor for any signs of volume overload. Continue IV vancomycin at 1 g daily and IV Zosyn and at 3.375 g intravenously every 6 hours. Follow up blood cultures were taken yesterday. Obtain an echocardiogram. Jaden Shirley MD
== END 2018-01-22 18:05 | disposition left against medical advice (07) | DRG 918 ==
LOC: ED 17:44 → ERH 22:10 → CCU 01-22 00:08
PROVIDERS: ADMIT Hospitalist; ATTEND Hospitalist
DX: T40.1X1A Poisoning by heroin, accidental (unintentional), initial encounter (principal); E87.2 Acidosis; I95.9 Hypotension, unspecified; R00.2 Palpitations; D72.829 Elevated white blood cell count, unspecified; R33.9 Retention of urine, unspecified; Z87.891 Personal history of nicotine dependence; D72.820 Lymphocytosis (symptomatic); E87.5 Hyperkalemia; F15.11 Other stimulant abuse, in remission

== ENCOUNTER 2018-01-29 10:28 | Emergency (ER) | payer BC ==
[2018-01-29 10:29] VITALS: BMI 22.7
--- NOTE | 2018-01-29 11:26 | ED PDOC ---
Arrival/HPI - General Chief Complaint: Substance Abuse Time Seen by Provider: 01/29/18 10:57 Historian: Patient - History of Present Illness Narrative History of Present Illness (Text): 01/29/18 11:10 27 year old male, with past medical history of polysubstance abuse, presents to the Emergency department complaining of "feeling weird" s/p injection of crack/heroine today Patient states he usually uses crystal meth but refuses to elaborate any further. Patient currently denies any specific complaints of pain. Patient denies any fever, chills, nausea, vomiting, abdominal pain, chest pain, shortness of breath or any other complaints. Patient denies any suicidal or homicidal ideation. Patient was recently admitted inpatient but signed out against medical advice. Patient now presents to the Emergency department for medical evaluation. pt in er is calm cooperative, in nad, on phone. 01/29/18 13:55 01/29/18 13:56 Time/Duration: Other (9am this morning) Symptom Onset: Gradual Symptom Course: Unchanged Activities at Onset: Light Context: Home Past Medical History - Provider Review Nursing Documentation Reviewed: Yes - Infectious Disease Hx of Infectious Diseases: None - Hematological/Oncological Hx Hepatitis C: Yes - Musculoskeletal/Rheumatological Hx Falls: No - Psychiatric Hx Anxiety: Yes Hx Depression: Yes Hx Substance Use: Yes (Meth) Other/Comment: substance abuse - Surgical History Hx Tonsillectomy: Yes - Anesthesia Hx Anesthesia: Yes Hx Anesthesia Reactions: No Hx Malignant Hyperthermia: No Family/Social History - Physician Review Nursing Documentation Reviewed: Yes Family/Social History: No Known Family HX Smoking Status: Unknown If Ever Smoked Hx Alcohol Use: No Hx Substance Use: Yes (Meth) Substance used: cocaine & heroine Allergies/Home Meds Allergies/Adverse Reactions: Allergies No Known Allergies Allergy (Verified 01/21/18 18:43) Home Medications: Home Meds Medication Instructions Recorded Confirmed RX: Unobtainable 01/21/18 01/29/18 Review of Systems - Physician Review All systems were reviewed & negative as marked: Yes - Review of Systems Constitutional: absent: Fevers Respiratory: absent: SOB Cardiovascular: absent: Chest Pain Gastrointestinal: absent: Abdominal Pain, Nausea, Vomiting Neurological: absent: Headache, Dizziness Psychiatric: absent: Suicidal Ideation Physical Exam Vital Signs Reviewed: Yes Temperature: Afebrile Blood Pressure: Normal Pulse: Regular Respiratory Rate: Normal Appearance: Positive for: Other (Mild somolent appearing) Pain Distress: None Mental Status: Positive for: Alert and Oriented X 3 - Systems Exam Head: Present: Atraumatic, Normocephalic Pupils: Present: Other (Constricted) Extroacular Muscles: Present: EOMI Conjunctiva: Present: Normal Mouth: Present: Moist Mucous Membranes Neck: Present: Normal Range of Motion Respiratory/Chest: Present: Clear to Auscultation, Good Air Exchange. No: Respiratory Distress, Accessory Muscle Use Cardiovascular: Present: Regular Rate and Rhythm, Normal S1, S2. No: Murmurs Abdomen: No: Tenderness, Distention, Peritoneal Signs Back: Present: Normal Inspection Upper Extremity: Present: Normal Inspection. No: Cyanosis, Edema Lower Extremity: Present: Normal Inspection. No: Edema Neurological: Present: GCS=15, CN II-XII Intact, Speech Normal Skin: Present: Warm, Dry, Normal Color. No: Rashes Psychiatric: Present: Alert, Oriented x 3, Normal Insight, Normal Concentration Medical Decision Making ED Course and Treatment: 01/29/18 11:10 Impression: 27 year old male presents to the Emergency department for medical evaluation s/p crack/heroin injection. pt is awake alert in nad. Differential Diagnosis included but are not limited to: Polysubstance abuse ro other metabolic infectious etiology pt in er calm cooperatrive no si hi. Plan: -- EKG -- Labs -- Urinalysis -- Reassess and disposition Prior Visits: Notes and results from previous visits were reviewed. Progress Notes: 01/29/18 11:53 EKG: Ordered, reviewed, and independently interpreted the EKG. Rate : 92 BPM Rhythm : NSR Interpretation : No ST-segment elevations or depressions, no T-wave inversions, normal intervals. 01/29/18 12:04 pt in er, declines lab work, and seen eloping from er with steady gait in nad. 01/29/18 13:56 - EKG Interpretation Interpreted by ED Physician: Yes Type: 12 lead EKG - Scribe Statement The provider has reviewed the documentation as recorded by the Scribe June Byrne. All medical record entries made by the Scribe were at my direction and personally dictated by me. I have reviewed the chart and agree that the record accurately reflects my personal performance of the history, physical exam, medical decision making, and the department course for this patient. I have also personally directed, reviewed, and agree with the discharge instructions and disposition. Disposition/Present on Arrival - Present on Arrival Any Indicators Present on Arrival: No History of DVT/PE: No History of Uncontrolled Diabetes: No Urinary Catheter: No History of Decub. Ulcer: No History Surgical Site Infection Following: None - Disposition Have Diagnosis and Disposition been Completed?: Yes Diagnosis: Substance abuse Disposition: ELOPEMENT - ER ONLY Disposition Time: 10:30 Condition: UNKNOWN Forms: [employer] (Belarusian)
[2018-01-29 13:48] VITALS: BP 131/77; PULSE 78; RESP 18; TEMP 97.8; O2SAT 98
--- NOTE | 2018-01-29 15:26 | CARD ---
APPROVED REPORT Date of service: 01/29/2018 EKG Measurement [id number] <Conclusion> Normal sinus rhythm Normal ECG
[2018-01-30] MEDS ORDERED: Bacitracin Ointment 30 GM TUBE ONE (13:12)
== END 2018-01-29 11:00 | disposition left against medical advice (07) ==
LOC: ED 10:28
DX: F19.10 Other psychoactive substance abuse, uncomplicated (principal)

== ENCOUNTER 2018-04-04 11:32 | Emergency (ER) | payer BC ==
[2018-04-04 11:32] VITALS: BMI 22.7
[2018-04-04 11:40] VITALS: TEMP 98.1
--- NOTE | 2018-04-04 11:59 | ED PDOC ---
Arrival/HPI - General Historian: Patient - History of Present Illness Narrative History of Present Illness (Text): 04/04/18 11:59 27 y o male Past medical history of polysubstance abuse, Hep C (s/p treatment) presents to emergency department [facility] for overdose. Per EMS, pt's mother called 911 because she was worried about pt. Pt ingested drugs 30 mins prior to emergency department presentation. Denies being in any pain currently. AAOx3 resting comfortably at bedside on exam. Admits to using cocaine and meth via IV. States he was not trying to intentionally overdose, states that this is usually what he takes. States he obtained the drugs from some place in [place]. Denies headache, fever, chills, chest pain, shortness of breath, n/v/d/c, abd pain, urinary complaints, or other symptoms. Past medical history: polysubstance abuse, Hep C (s/p treatment) PSurgHx: n/a Allergies: NKDA Home meds: none Fam hx: denies Soc hx: PMD: none Time/Duration: 1/2 hour Symptom Onset: Sudden Symptom Course: Unchanged Quality: Unable to Describe Context: Home <Willy Hawkins - Last Filed: 04/04/18 16:09> <Oscar Fletcher - Last Filed: 04/04/18 18:36> - General Chief Complaint: Substance Abuse Time Seen by Provider: 04/04/18 11:32 Past Medical History - Provider Review Nursing Documentation Reviewed: Yes - Travel History Have you recently traveled outside [place] w/in the past 3 mons?: No - Infectious Disease Hx of Infectious Diseases: None - Hematological/Oncological Hx Hepatitis C: Yes - Musculoskeletal/Rheumatological Hx Falls: No - Psychiatric Hx Anxiety: Yes Hx Depression: Yes Hx Substance Use: Yes (Meth) Other/Comment: substance abuse - Surgical History Hx Tonsillectomy: Yes - Anesthesia Hx Anesthesia: Yes Hx Anesthesia Reactions: No Hx Malignant Hyperthermia: No <Willy Hawkins - Last Filed: 04/04/18 16:09> Family/Social History - Physician Review Nursing Documentation Reviewed: Yes Smoking Status: Unknown If Ever Smoked Hx Alcohol Use: No Hx Substance Use: Yes (Meth) Substance used: cocaine & heroine <Willy Hawkins - Last Filed: 04/04/18 16:09> Family/Social History: No Known Family HX <Oscar Fletcher - Last Filed: 04/04/18 18:36> Allergies/Home Meds <Willy Hawkins - Last Filed: 04/04/18 16:09> <Oscar Fletcher - Last Filed: 04/04/18 18:36> Allergies/Adverse Reactions: Allergies No Known Allergies Allergy (Verified 01/21/18 18:43) Home Medications: Home Meds Medication Instructions Recorded Confirmed Unobtainable 01/21/18 04/04/18 Review of Systems - Physician Review All systems were reviewed & negative as marked: Yes - Review of Systems Constitutional: absent: Fatigue Eyes: absent: Vision Changes ENT: absent: Hearing Changes Respiratory: absent: SOB, Cough Cardiovascular: absent: Chest Pain, Palpitations, GARCÍA Gastrointestinal: absent: Abdominal Pain, Constipation, Diarrhea Genitourinary Male: absent: Dysuria, Frequency Musculoskeletal: absent: Back Pain Skin: absent: Rash, Pruritis Neurological: absent: Headache Endocrine: absent: Diaphoresis Psychiatric: absent: Anxiety, Depression, Suicidal Ideation <Willy Hawkins - Last Filed: 04/04/18 16:09> Physical Exam Vital Signs Temp Pulse Resp BP Pulse Ox 04/04/18 11:32 98.1 F 102 H 18 123/73 97 Temperature: Afebrile Blood Pressure: Normal Pulse: Tachycardic Respiratory Rate: Normal Appearance: Positive for: Non-Toxic, Comfortable Pain Distress: None Mental Status: Positive for: Alert and Oriented X 3 - Systems Exam Head: Present: Atraumatic, Normocephalic Pupils: Present: Sluggish Extroacular Muscles: Present: EOMI Conjunctiva: Present: Normal Mouth: Present: Moist Mucous Membranes Neck: Present: Normal Range of Motion. No: JVD, Lymphadenopathy Respiratory/Chest: Present: Clear to Auscultation, Good Air Exchange. No: Respiratory Distress, Accessory Muscle Use, Wheezes, Rales, Rhonchi Cardiovascular: Present: Normal S1, S2, Tachycardic. No: Murmurs, Rub, Gallop Abdomen: Present: Normal Bowel Sounds. No: Tenderness, Distention, Rebound, Guarding, Mass/Organomegaly Back: No: Normal Inspection, Midline Tenderness Upper Extremity: Present: Normal Inspection, Normal ROM, NORMAL PULSES, Neurovascularly Intact, Capillary Refill < 2s. No: Cyanosis, Edema, Temperature Abnormalties Lower Extremity: Present: Normal Inspection, NORMAL PULSES, Swelling, Neurovascularly Intact, Capillary Refill < 2 s. No: Edema, CALF TENDERNESS Neurological: Present: GCS=15, CN II-XII Intact, Speech Normal, Motor Func Grossly Intact, Normal Sensory Function, Gait Normal Skin: Present: Warm, Dry, Normal Color. No: Rashes Psychiatric: Present: Alert, Oriented x 3 <Willy Hawkins - Last Filed: 04/04/18 16:09> Vital Signs Temp Pulse Resp BP Pulse Ox 04/04/18 11:32 98.1 F 102 H 18 123/73 97 <Oscar Fletcher - Last Filed: 04/04/18 18:36> Medical Decision Making ED Course and Treatment: 04/04/18 13:27 27 y o male Past medical history polysubstance abuse, Hep C s/p treatment, [facility] for drug overdose. Plan: -Labs -IVF -CXR -EKG Will continue to monitor. Of note: pt became agitated with staff and was trying to elope from emergency department. Ativan x2, Haldol x 1 given. Code [facility] called. Case discussed with pt's mother over phone, states that pt called EMS to be evaluated, agrees with current management, advised her to call back with any questions or concerns. Pt now observed sleeping, will continue to monitor. 04/04/18 16:10 Reassessed pt, observed sleeping, O2 sat 95% on NC. Will continue to monitor. - RAD Interpretation Radiology Orders: 04/04/18 11:55 CHEST PORTABLE [RAD] Stat <Willy Hawkins - Last Filed: 04/04/18 16:09> ED Course and Treatment: 04/04/18 13:53 Larry Cesar is a 27 year old male who is brought into the emergency department for overdose. Patient has a history of Hep C and polysubstance abuse. In agreement with resident note, which includes further HPI details. Patient was seen and evaluated with resident, came up with plan and treatment together. 04/04/18 12:36 Patient trying to leave, but under the influence of drugs, impairing judgment. I tried to reason with the patient, but he is unreasonable, and not understanding the risks of leaving. Patient became aggressive and agitated. Sedated him with 2 mg of Ativan and 5 mg of Haldol for his safety and staff safety. 04/04/18 12:59 Patient still agitated and aggressive, 2 mg Ativan added again. 04/04/18 13:57 Patient is calm now. Resting comfortably. On air sampling and monitoring. EKG: Ordered, reviewed, and independently interpreted the EKG. Rate : 96 BPM Rhythm : NSR 04/04/18 18:35 I called his mom to give him an update on his status and she appreciated the call. She will pick him up when we clear him. Patient is stable. He is drowsy but arousable to voice. Will sign out to Dr. Brown to f/u sobriety. - Lab Interpretations Lab Results: 04/04/18 12:25 04/04/18 12:25 Lab Results 04/04/18 12:25: Urine Opiates Screen Positive H, Urine Methadone Screen Negative, Ur Barbiturates Screen Negative, Ur Phencyclidine Scrn Negative, Ur Amphetamines Screen Positive H, U Benzodiazepines Scrn Positive H, U Oth Cocaine Metabols Positive H, U Cannabinoids Screen Negative 04/04/18 12:25: Alcohol, Quantitative < 10 04/04/18 12:25: Salicylates < 1 L, Acetaminophen < 10.0 L 04/04/18 12:25: Sodium 137, Potassium 4.4, Chloride 102, Carbon Dioxide 32, Anion Gap 8 L, BUN 16, Creatinine 0.6 L, Est GFR ( Amer) > 60, Est GFR (Non-Af Amer) > 60, Random Glucose 88, Calcium 8.7, Magnesium 2.1, Total Bi lirubin 0.6, AST 35, ALT 38, Alkaline Phosphatase 71, Total Protein 6.4, Albumin 3.6, Globulin 2.8, Albumin/Globulin Ratio 1.3 04/04/18 12:25: Urine Color Yellow, Urine Appearance Clear, Urine pH 8.0, Ur Specific [place] 1.010, Urine Protein Negative, Urine Glucose (UA) Negative, Urine Ketones Negative, Urine Blood Negative, Urine Nitrate Negative, Urine Bilirubin Negative, Urine Urobilinogen 0.2, Ur Leukocyte Esterase Negative 04/04/18 12:25: WBC 6.9, RBC 4.40, Hgb 13.2 L, Hct 39.2 L, MCV 89.1, MCH 30.0, MCHC 33.7, RDW 13.1, Plt Count 196, MPV 9.8, Gran % 45.8 L, Lymph % (Auto) 39.0 H, [place] % (Auto) 10.1 H, Eos % (Auto) 4.8, Baso % (Auto) 0.3, Gran # 3.17, Lymph # (Auto) 2.7, [place] # (Auto) 0.7 H, Eos # (Auto) 0.3, Baso # (Auto) 0.02 - RAD Interpretation Radiology Orders: 04/04/18 11:55 CHEST PORTABLE [RAD] Stat - Medication Orders Current Medication Orders: Discontinued Medications Haloperidol Lactate (Haldol) 5 mg IM STAT STA; Protocol Stop: 04/04/18 12:39 Last Admin: 04/04/18 12:45 Dose: 5 mg IM Administration Charges Document 04/04/18 12:45 SRE (Rec: 04/04/18 12:45 SRE [id number]) Injection Site MAR Injection Site Left Gluteus Parker Charges for Administration # of IM Administrations 1 Lorazepam (Ativan) 2 mg IVP ONCE ONE; Protocol Stop: 04/04/18 12:37 Last Admin: 04/04/18 12:44 Dose: 2 mg IVP Administration Document 04/04/18 12:44 SRE (Rec: 04/04/18 12:45 SRE [id number]) Charges for Administration # of IVP Administrations 1 Lorazepam (Ativan) 2 mg IVP ONCE ONE; Protocol Stop: 04/04/18 12:59 Last Admin: 04/04/18 13:14 Dose: 2 mg IVP Administration Document 04/04/18 13:14 SRE (Rec: 04/04/18 13:14 SRE [id number]) Charges for Administration # of IVP Administrations 1 <Oscar Fletcher - Last Filed: 04/04/18 18:36> - Scribe Statement The provider has reviewed the documentation as recorded by the Scribe Sofi Farley Provider Scribe Attestation: All medical record entries made by the Scribe were at my direction and personally dictated by me. I have reviewed the chart and agree that the record accurately reflects my personal performance of the history, physical exam, medical decision making, and the department course for this patient. I have also personally directed, reviewed, and agree with the discharge instructions and disposition. <Oscar Fletcher - Last Filed: 04/04/18 18:36> Disposition/Present on Arrival - Present on Arrival History of DVT/PE: No History of Uncontrolled Diabetes: No Urinary Catheter: No History of Decub. Ulcer: No History Surgical Site Infection Following: None <Willy Hawkins - Last Filed: 04/04/18 16:09> - Present on Arrival Any Indicators Present on Arrival: No - Disposition Have Diagnosis and Disposition been Completed?: No Disposition Time: 18:36 <Oscar Fletcher - Last Filed: 04/04/18 18:36> - Disposition Diagnosis: Drug overdose Condition: FAIR Forms: [facility] ([place])
--- NOTE | 2018-04-04 12:32 | RAD ---
Date of service: 04/04/2018 HISTORY: s/p drug overdose COMPARISON: No prior. FINDINGS: LUNGS: No active pulmonary disease. PLEURA: No significant pleural effusion identified, no pneumothorax apparent. CARDIOVASCULAR: No aortic atherosclerotic calcification present. Normal cardiac size. No pulmonary vascular congestion. OSSEOUS STRUCTURES: No significant abnormalities. VISUALIZED UPPER ABDOMEN: Normal. OTHER FINDINGS: None. IMPRESSION: No active disease.
[2018-04-04 12:52] LABS: ALB/GLOB RATIO 1.3 (1.1-1.8); ALBUMIN 3.6 g/dL (3.0-4.8); ALT/SGPT 38 U/L (7-56); AST/SGOT 35 U/L (17-59); BLOOD UREA NITROGEN 16 mg/dL (7-21); CALCIUM 8.7 mg/dL (8.4-10.5); GFR NON-AFRICAN AMERICAN > 60; URINE APPEARANCE CLEAR (CLEAR); URINE BILIRUBIN NEGATIVE (NEGATIVE); URINE BLOOD NEGATIVE (NEGATIVE); URINE COLOR YELLOW (YELLOW); URINE GLUCOSE (UA) NEGATIVE (NEGATIVE); URINE LEUKOCYTE ESTERASE NEGATIVE Leu/uL (NEGATIVE); URINE PROTEIN NEGATIVE mg/dL (<30 mg/dL); URINE UROBILINOGEN 0.2 E.U./dL (<1 E.U./dL)
[2018-04-04 12:53] LABS: ACETAMINOPHEN < 10.0 ug/ml (10.0-20.0); SALICYLATE < 1 mg/dL (2.0-20.0)
[2018-04-04 12:54] LABS: BASO # 0.02 K/mm3 (0.0-2.0); BASO % 0.3 % (0.0-3.0); EOS # 0.3 (0.0-0.7); EOS % 4.8 % (1.5-5.0); GRAN # 3.17 (1.4-6.5); GRAN % 45.8 % (50.0-68.0); HEMOGLOBIN 13.2 g/dL (14.0-18.0); LYMPH # 2.7 (1.2-3.4); MEAN CELL VOLUME 89.1 fl (80.0-105.0); MEAN CORPUSCULAR HGB CONC 33.7 g/dl (31.0-37.0); MEAN PLATELET VOLUME 9.8 fl (7.0-11.0); MONO # 0.7 (0.1-0.6); MONO % 10.1 % (1.0-6.0); RBC 4.4 10^6/uL (3.5-6.1); RED CELL DISTRIBUTION WIDTH 13.1 % (11.5-14.5); WHITE BLOOD COUNT 6.9 10^3/uL (4.5-11.0)
[2018-04-04 13:14] LABS: BARBITURATES, UR NEGATIVE (NEGATIVE); BENZODIAZEPINES, UR POSITIVE (NEGATIVE); OPIATES, UR POSITIVE (NEGATIVE); PHENCYCLIDINE, UR NEGATIVE (NEGATIVE)
--- NOTE | 2018-04-04 15:37 | CARD ---
APPROVED REPORT Date of service: 04/04/2018 EKG Measurement Heart [id number] <Conclusion> Normal sinus rhythm with sinus arrhythmia Normal ECG
--- NOTE | 2018-04-04 19:35 | ED PDOC ---
Physical Exam Vital Signs Reviewed: Yes Vital Signs Temp Pulse Resp BP Pulse Ox 04/04/18 18:46 90 16 100/63 96 04/04/18 16:47 95 H 15 107/51 L 96 04/04/18 16:34 94 H 16 96/37 L 96 04/04/18 15:25 92 H 18 96/43 L 95 04/04/18 11:32 98.1 F 102 H 18 123/73 97 Temperature: Afebrile Blood Pressure: Normal Pulse: Tachycardic Respiratory Rate: Normal Appearance: Positive for: Well-Appearing, Non-Toxic, Comfortable Pain Distress: None Mental Status: Positive for: Alert and Oriented X 3 - Systems Exam Head: Present: Atraumatic, Normocephalic Pupils: Present: PERRL Extroacular Muscles: Present: EOMI Conjunctiva: Present: Normal Mouth: Present: Moist Mucous Membranes Neck: Present: Normal Range of Motion Respiratory/Chest: Present: Clear to Auscultation, Good Air Exchange. No: Respiratory Distress, Accessory Muscle Use Cardiovascular: Present: Regular Rate and Rhythm, Normal S1, S2. No: Murmurs Abdomen: No: Tenderness, Distention, Peritoneal Signs Back: Present: Normal Inspection Upper Extremity: Present: Normal Inspection. No: Cyanosis, Edema Lower Extremity: Present: Normal Inspection. No: Edema Neurological: Present: GCS=15, CN II-XII Intact, Speech Normal Skin: Present: Warm, Dry, Normal Color. No: Rashes Psychiatric: Present: Alert, Oriented x 3, Normal Insight, Normal Concentration Medical Decision Making ED Course and Treatment: 04/04/18 19:34 Case endorsed to me pending sobriety. 04/04/18 22:55 On reevaluation, pt is awake, alert, and in no acute distress. Ambulating with steady gait. Mother present in Emergency department. Pt d/c and released in to mother's custody. - Lab Interpretations Lab Results: 04/04/18 12:25 04/04/18 12:25 Lab Results 04/04/18 12:25: Urine Opiates Screen Positive H, Urine Methadone Screen Negative, Ur Barbiturates Screen Negative, Ur Phencyclidine Scrn Negative, Ur Amphetamines Screen Positive H, U Benzodiazepines Scrn Positive H, U Oth Cocaine Metabols Positive H, U Cannabinoids Screen Negative 04/04/18 12:25: Alcohol, Quantitative < 10 04/04/18 12:25: Salicylates < 1 L, Acetaminophen < 10.0 L 04/04/18 12:25: Sodium 137, Potassium 4.4, Chloride 102, Carbon Dioxide 32, Anion Gap 8 L, BUN 16, Creatinine 0.6 L, Est GFR ( Amer) > 60, Est GFR (Non-Af Amer) > 60, Random Glucose 88, Calcium 8.7, Magnesium 2.1, Total Bilirubin 0.6, AST 35, ALT 38, Alkaline Phosphatase 71, Total Protein 6.4, Albumin 3.6, Globulin 2.8, Albumin/Globulin Ratio 1.3 04/04/18 12:25: Urine Color Yellow, Urine Appearance Clear, Urine pH 8.0, Ur Specific [place] 1.010, Urine Protein Negative, Urine Glucose (UA) Negative, Urine Ketones Negative, Urine Blood Negative, Urine Nitrate Negative, Urine Bilirubin Negative, Urine Urobilinogen 0.2, Ur Leukocyte Esterase Negative 04/04/18 12:25: WBC 6.9, RBC 4.40, Hgb 13.2 L, Hct 39.2 L, MCV 89.1, MCH 30.0, MCHC 33.7, RDW 13.1, Plt Count 196, MPV 9.8, Gran % 45.8 L, Lymph % (Auto) 39.0 H, [place] % (Auto) 10.1 H, Eos % (Auto) 4.8, Baso % (Auto) 0.3, Gran # 3.17, Lymph # (Auto) 2.7, [place] # (Auto) 0.7 H, Eos # (Auto) 0.3, Baso # (Auto) 0.02 - RAD Interpretation Radiology Orders: 04/04/18 11:55 CHEST PORTABLE [RAD] Stat - Medication Orders Current Medication Orders: Discontinued Medications Haloperidol Lactate (Haldol) 5 mg IM STAT STA; Protocol Stop: 04/04/18 12:39 Last Admin: 04/04/18 12:45 Dose: 5 mg IM Administration Charges Document 04/04/18 12:45 SRE (Rec: 04/04/18 12:45 SRE [id number]) Injection Site MAR Injection Site Left Gluteus Parker Charges for Administration # of IM Administrations 1 Lorazepam (Ativan) 2 mg IVP ONCE ONE; Protocol Stop: 04/04/18 12:37 Last Admin: 04/04/18 12:44 Dose: 2 mg IVP Administration Document 04/04/18 12:44 SRE (Rec: 04/04/18 12:45 SRE [id number]) Charges for Administration # of IVP Administrations 1 Lorazepam (Ativan) 2 mg IVP ONCE ONE; Protocol Stop: 04/04/18 12:59 Last Admin: 04/04/18 13:14 Dose: 2 mg IVP Administration Document 04/04/18 13:14 SRE (Rec: 04/04/18 13:14 SRE [id number]) Charges for Administration # of IVP Administrations 1 - Scribe Statement The provider has reviewed the documentation as recorded by the Scribpepe Moss All medical record entries made by the Scribe were at my direction and personally dictated by me. I have reviewed the chart and agree that the record accurately reflects my personal performance of the history, physical exam, medical decision making, and the department course for this patient. I have also personally directed, reviewed, and agree with the discharge instructions and disposition. Disposition/Present on Arrival - Present on Arrival Any Indicators Present on Arrival: No History of DVT/PE: No History of Uncontrolled Diabetes: No Urinary Catheter: No History of Decub. Ulcer: No History Surgical Site Infection Following: None - Disposition Have Diagnosis and Disposition been Completed?: Yes Diagnosis: Drug overdose, Substance abuse Disposition: HOME/ ROUTINE Disposition Time: 22:55 Condition: FAIR Discharge Instructions (ExitCare): Drug Abuse and Drug Addiction (DC) Forms: [employer] ([place])
[2018-04-04 23:00] VITALS: BP 120/57; PULSE 98; RESP 13; O2SAT 100
== END 2018-04-04 22:57 | disposition home or self-care (01) ==
LOC: ED 11:32
DX: T50.991A Poisoning by other drugs, medicaments and biological substances, accidental (unintentional), initial encounter (principal); Y92.89 Other specified places as the place of occurrence of the external cause; B19.20 Unspecified viral hepatitis C without hepatic coma; F41.9 Anxiety disorder, unspecified; F32.9 Major depressive disorder, single episode, unspecified
CPT/HCPCS: 71045; 80053; 81003; 83735; 85025; 93005; 96372; 96374; 96376; 99285; G0480; J1630; J2060